=== PATIENT | male | born 1940 | race Caucasian/White ===

== ENCOUNTER → 2016-11-23 | Outpatient (CLI) | payer MEDICARE ==
[~2016-11-23] MED LIST: AMLO2.5T PO; ATOR10 PO; ENBR50IN3 SC; FOLI1 PO; LISI10TA PO; METH2.5 PO; PLAV75TA PO; ST J81CH PO; TAB-TAB PO; TIMO0.5S4 EACH EYE
[2016-11-23 15:49] LABS: HEMATOCRIT 39.3 % (39.0-51.0); MEAN CELL VOLUME 93.1 FL (80.0-100.0); MEAN CORPUSCULAR HEMOGLOBIN 31.3 PG (27.0-34.0); MEAN CORPUSCULAR HGB CONC 33.7 % (32.0-36.0); PLATELET COUNT 192 TH/MM3 (150-450); RED BLOOD COUNT 4.23 MIL/MM3 (4.50-5.90); RED CELL DISTRIBUTION WIDTH 14.4 % (11.6-17.2); REVIEW FLAG FINAL; WHITE BLOOD COUNT 5.6 TH/MM3 (4.0-11.0)
[2016-11-23 16:03] LABS: ANION GAP 5 MEQ/L (5-15); AST (GOT) 13 U/L (15-37); BICARBONATE 31.9 MEQ/L (21.0-32.0); BLOOD UREA NITROGEN 19 MG/DL (7-18); CHLORIDE 103 MEQ/L (98-107); GLOMERULAR FILTRATION RATE 92 ML/MIN (>89); POTASSIUM 4.2 MEQ/L (3.5-5.1); SODIUM (NA) 140 MEQ/L (136-145)
[2016-11-23 16:07] LABS: ALKALINE PHOSPHATASE 69 U/L (45-117); ALT (GPT) 21 U/L (12-78); TOTAL BILIRUBIN ADULT 0.6 MG/DL (0.2-1.0)
[2016-11-23 16:55] LABS: WESTERGREN SEDIMENTATION RATE 17 mm/hr (0-20)
== END ==
LOC: PLAB 11:31
DX: M06.4 Inflammatory polyarthropathy (principal)
CPT/HCPCS: 36415; 80053; 85027; 85652; 86140

== ENCOUNTER → 2017-02-18 | Outpatient (CLI) | payer MEDICARE ==
[2017-02-18 15:36] LABS: HEMATOCRIT 38.2 % (39.0-51.0); MEAN CELL VOLUME 92.1 FL (80.0-100.0); MEAN CORPUSCULAR HEMOGLOBIN 30.9 PG (27.0-34.0); MEAN CORPUSCULAR HGB CONC 33.5 % (32.0-36.0); PLATELET COUNT 213 TH/MM3 (150-450); RED BLOOD COUNT 4.14 MIL/MM3 (4.50-5.90); RED CELL DISTRIBUTION WIDTH 14.2 % (11.6-17.2); REVIEW FLAG FINAL; WHITE BLOOD COUNT 6.3 TH/MM3 (4.0-11.0)
[2017-02-18 16:00] LABS: ALT (GPT) 32 U/L (12-78); ANION GAP 4 MEQ/L (5-15); AST (GOT) 27 U/L (15-37); BICARBONATE 34.2 MEQ/L (21.0-32.0); BLOOD UREA NITROGEN 17 MG/DL (7-18); CHLORIDE 103 MEQ/L (98-107); GLOMERULAR FILTRATION RATE 98 ML/MIN (>89); GLUCOSE,FASTING 88 MG/DL (74-99); POTASSIUM 5.6 MEQ/L (3.5-5.1); SODIUM (NA) 141 MEQ/L (136-145)
[2017-02-18 16:02] LABS: ALKALINE PHOSPHATASE 83 U/L (45-117); TOTAL BILIRUBIN ADULT 0.4 MG/DL (0.2-1.0)
[2017-02-18 16:10] LABS: WESTERGREN SEDIMENTATION RATE 28 mm/hr (0-20)
== END ==
LOC: PLAB 11:16
DX: M06.4 Inflammatory polyarthropathy (principal)
CPT/HCPCS: 36415; 80053; 85027; 85652; 86140

== ENCOUNTER → 2017-04-26 | Outpatient (CLI) | payer MEDICARE ==
[2017-04-26 12:44] LABS: ANION GAP 6 MEQ/L (5-15); AST (GOT) 22 U/L (15-37); BICARBONATE 31.1 MEQ/L (21.0-32.0); BLOOD UREA NITROGEN 19 MG/DL (7-18); CHLORIDE 103 MEQ/L (98-107); GLOMERULAR FILTRATION RATE 85 ML/MIN (>89); GLUCOSE,FASTING 114 MG/DL (74-99); POTASSIUM 4.8 MEQ/L (3.5-5.1); SODIUM (NA) 140 MEQ/L (136-145)
[2017-04-26 12:45] LABS: ALT (GPT) 21 U/L (12-78)
[2017-04-26 12:53] LABS: ALKALINE PHOSPHATASE 96 U/L (45-117); FREE T4 0.96 NG/DL (0.76-1.46); HDL CHOLESTEROL 48.3 MG/DL (40.0-60.0); LDL CHOLESTEROL 56 MG/DL (0-99); TOTAL BILIRUBIN ADULT 0.5 MG/DL (0.2-1.0)
[2017-04-26 17:01] LABS: HEMOGLOBIN A1b 1.6 %; HEMOGLOBIN LA1C 2.1 %; HEMOGLOBIN P3 3.9 %
== END ==
LOC: PLAB 09:43
PROVIDERS: ATTEND Family Medicine
DX: E78.5 Hyperlipidemia, unspecified (principal); R94.6 Abnormal results of thyroid function studies; R53.83 Other fatigue; R73.01 Impaired fasting glucose; Z12.5 Encounter for screening for malignant neoplasm of prostate
CPT/HCPCS: 36415; 80053; 80061; 83036; 84439; 84443; G0103

== ENCOUNTER 2017-05-23 09:21 | Inpatient (IN) | payer MEDICARE ==
[2017-05-23] VITALS (7 sets, daily range): BP systolic 127–147; BP diastolic 58–67; PULSE 61–81; RESP 16–20; TEMP 96.6–97.5; O2SAT 93–98
[~2017-05-23] VITALS: Ht 177.8 cm; Wt 88.0 kg
[2017-05-23] MEDS ORDERED: FOLI400T PO (09:37)
[2017-05-23] MEDS ORDERED: METH2.5T PO (09:37)
[2017-05-23] MEDS ORDERED: LUTE1TAB PO (09:37)
[2017-05-23] MEDS ORDERED: PLAV75TA29 PO (09:37)
[2017-05-23] MEDS ORDERED: LIPI10TA PO (09:37)
[2017-05-23] MEDS ORDERED: ENBR50IN2 SQ (09:37)
[2017-05-23] MEDS ORDERED: MULTTAB67 PO (09:37)
[2017-05-23] MEDS ORDERED: LISI20TA3 PO (09:37)
[2017-05-23] MEDS ORDERED: ASPI81CH CHEW (09:37)
[2017-05-23] MEDS ORDERED: AMLO5TAB2 PO (09:37)
[2017-05-23] MEDS ORDERED: TIMO0.5S30 LEFT EYE (09:37)
[2017-05-23] MEDS ORDERED: SODIUM CHLORIDE 0.9% FLUSH 10 ML FLUSH IV FLUSH PRN ×2 (09:45→11:45)
[2017-05-23] MEDS ORDERED: ONDANSETRON HCL 4 MG/2 ML VIAL IVP ONE (09:45)
[2017-05-23] MEDS ORDERED: MORPHINE SULFATE 4 MG/ML INJ IV PUSH ONE (09:45)
--- NOTE | 2017-05-23 10:13 | PD ---
HPI . Abdominal pain Chief Complaint: GI Complaint Time Seen by Provider: 09:34 Travel History International Travel<30 days: No Contact w/Intl Traveler<30days: No Traveled to known affect area: No History of Present Illness HPI This patient presents along with his with the chief complaint of abdominal pain. He states that he was fine when he went to bed last night but was awakened from sleep at about 4 AM with lower abdominal pain. His gave him some Gas-X. His pain subsequently moved from the lower abdomen to the upper abdomen. She then gave him Zantac. She states that he vomited the Zantac. The Gas-X and Zantac gave him no relief. He rates his pain as 7-8/10. He states that it is a constant pain. He is unable to further characterize the pain. He states that his last normal bowel movement was 2 days ago. He does not recall when he last passed gas. He reports no fever. He reports no urinary symptoms. He denies any previous similar history. He had pizza for supper last night. He states that he has never had any problems eating pizza before. PFSH Past Medical History Arthritis: Yes Blood Disorders: No Cancer: No Cardiovascular Problems: Yes Chemotherapy: No Cerebrovascular Accident: No Coronary Artery Disease: Yes Diabetes: No Diminished Hearing: No Endocrine: No Gastrointestinal Disorders: Yes (hernia) Glaucoma: No Genitourinary: No Headaches: No Hepatitis: No Hiatal Hernia: No Hypertension: Yes Immune Disorder: No Implanted Vascular Access Dvce: Yes Musculoskeletal: Yes Neurologic: Yes (cerv. fx) Psychiatric: No Reproductive: No Respiratory: No Migraines: No Myocardial Infarction: No Radiation Therapy: No Seizures: No Thyroid Disease: No Ulcer: No Past Surgical History Abdominal Surgery: Yes (BILAT INGUINAL HERNIA, ) AICD: No Appendectomy: No Cardiac Surgery: No Cholecystectomy: No Ear Surgery: No Endocrine Surgery: No Eye Surgery: No Genitourinary Surgery: No Gynecologic Surgery: No Joint Replacement: Yes Neurologic Surgery: Yes (cerv . fusion) Oral Surgery: No Pacemaker: No Thoracic Surgery: No Other Surgery: Yes (CAROTID ENDARTERECTOMY. Bilateral inguinal hernia repair.) Social History Alcohol Use: Yes (occ) Tobacco Use: No Substance Use: No Allergies-Medications (Allergen,Severity, Reaction): Coded Allergies: No Known Allergies (Verified , 05/23/17) Reported Meds & Prescriptions Reported Meds & Active Scripts Active Reported Lutein 10 Mg Tab 10 Mg PO DAILY Multiple Vitamin 1 Tab 1 Tab PO DAILY Aspirin 81 Mg Chew 81 Mg CHEW DAILY Timolol Opth Drops 0.5 % Soln 1 Drop LEFT EYE BID Folic Acid 400 Mcg Tab Unknown Dose PO DAILY Methotrexate 2.5 Mg Tab 10 Mg PO Q7D Lisinopril-Hctz 20-25 Mg Tab 1 Tab PO DAILY Amlodipine (Amlodipine Besylate) 5 Mg Tab 5 Mg PO DAILY Enbrel PF Inj (Etanercept) 50 mg/ml Syr 25 Mg SQ 2XWEEK Plavix (Clopidogrel Bisulfate) 75 Mg Tab 75 Mg PO DAILY Lipitor (Atorvastatin Calcium) 10 Mg Tab 10 Mg PO HS Review of Systems Except as stated in HPI: all other systems reviewed are Neg General / Constitutional: No: Fever, Chills Cardiovascular: No: Chest Pain or Discomfort Respiratory: No: Shortness of Breath Gastrointestinal: Positive: Nausea, Vomiting, Abdominal Pain, Constipation, No : Diarrhea Genitourinary: No: Urgency, Frequency, Dysuria Physical Exam Narrative GENERAL: This is an elderly man who is awake and alert and in no acute distress. SKIN: Warm and dry. HEAD: Atraumatic. Normocephalic. EYES: Pupils equal and round. Extraocular movements are intact. ENT: No nasal bleeding or discharge. Mucous membranes pink and moist. NECK: Trachea midline. Neck is supple. CARDIOVASCULAR: Regular rate and rhythm. Heart sounds are normal. RESPIRATORY: No accessory muscle use. Lungs are clear with good air movement throughout. GASTROINTESTINAL: Abdomen soft. He has a small, vertical surgical scar at the umbilicus. Bowel sounds are present. I am unable to elicit any tenderness. MUSCULOSKELETAL: No obvious deformities. No edema. NEUROLOGICAL: Awake and alert. No obvious cranial nerve deficits. Motor grossly within normal limits. Normal speech. PSYCHIATRIC: Appropriate mood and affect; insight and judgment normal. Data Data Last Documented VS Vital Signs Date Time Temp Pulse Resp B/P (MAP) Pulse Ox O2 Delivery O2 Flow Rate FiO2 05/23/17 10:19 61 20 127/61 (83) 94 05/23/17 09:25 97.5 Orders Orders Complete Blood Count With Diff (05/23/17 09:43) Comprehensive Metabolic Panel (05/23/17 09:43) Lipase (05/23/17 09:43) Urinalysis - C+S If Indicated (05/23/17 09:43) Ct Abd/Pel W Iv Contrast(Rout) (05/23/17 09:43) Iv Access Insert/Monitor (05/23/17 09:43) Ecg Monitoring (05/23/17 09:43) Oximetry (05/23/17 09:43) NPO (05/23/17 09:43) Morphine Inj (Morphine Inj) (05/23/17 09:45) Ondansetron Inj (Zofran Inj) (05/23/17 09:45) Sodium Chloride 0.9% Flush (Ns Flush) (05/23/17 09:45) Electrocardiogram (05/23/17 09:43) Sodium Chlor 0.9% 1000 Ml Inj (Ns 1000 M (05/23/17 11:00) Iohexol 350 Inj (Omnipaque 350 Inj) (05/23/17 10:52) Lactic Acid Sepsis Protocol (05/23/17 11:08) Piperacil-Tazo 3.375 Gm Premix (Zosyn 3. (05/23/17 11:15) Insert Ng Tube (05/23/17 11:25) Labs Laboratory Tests Test 05/23/17 09:50 05/23/17 11:24 White Blood Count 10.2 TH/MM3 Red Blood Count 4.22 MIL/MM3 Hemoglobin 13.3 GM/DL Hematocrit 39.0 % Mean Corpuscular Volume 92.5 FL Mean Corpuscular Hemoglobin 31.4 PG Mean Corpuscular Hemoglobin Concent 34.0 % Red Cell Distribution Width 13.6 % Platelet Count 190 TH/MM3 Mean Platelet Volume 7.5 FL Neutrophils (%) (Auto) 88.6 % Lymphocytes (%) (Auto) 6.9 % Monocytes (%) (Auto) 3.2 % Eosinophils (%) (Auto) 1.0 % Basophils (%) (Auto) 0.3 % Neutrophils # (Auto) 9.1 TH/MM3 Lymphocytes # (Auto) 0.7 TH/MM3 Monocytes # (Auto) 0.3 TH/MM3 Eosinophils # (Auto) 0.1 TH/MM3 Basophils # (Auto) 0.0 TH/MM3 CBC Comment DIFF FINAL Differential Comment Blood Urea Nitrogen 19 MG/DL Creatinine 0.68 MG/DL Random Glucose 165 MG/DL Total Protein 7.7 GM/DL Albumin 3.5 GM/DL Calcium Level 8.7 MG/DL Alkaline Phosphatase 82 U/L Aspartate Amino Transf (AST/SGOT) 21 U/L Alanine Aminotransferase (ALT/SGPT) 22 U/L Total Bilirubin 0.7 MG/DL Sodium Level 137 MEQ/L Potassium Level 4.1 MEQ/L Chloride Level 99 MEQ/L Carbon Dioxide Level 28.0 MEQ/L Anion Gap 10 MEQ/L Estimat Glomerular Filtration Rate 113 ML/MIN Lipase 96 U/L MDM Medical Decision Making Medical Screen Exam Complete: Yes Emergency Medical Condition: Yes Medical Record Reviewed: Yes (medical history significant for hypertension, hyperlipidemia and rheumatoid arthritis) Interpretation(s) EKG shows a normal sinus rhythm. His most recent EKG was in 2009. Since that time, he has developed downsloping of the ST segment in III. Otherwise, there have been no changes. Differential Diagnosis Differential diagnosis of abdominal pain includes but is not limited to gastritis, pancreatitis, hepatitis, gastroenteritis, gallbladder disease, constipation, urinary retention, UTI, peptic ulcer disease, diverticulitis or appendicitis Narrative Course This patient presents complaining with abdominal pain which started at 4:00 this morning. It started in the lower abdomen and has now moved to the upper abdomen. He reports no bowel movement for 2 days. He is also passing no gas. He has had previous abdominal surgery. Bowel obstruction needs to be ruled out. CT is pending. EKG was done to rule out ACS. Labs are pending. In the meantime, he will be treated with IV morphine and Zofran. CBC & BMP Diagram 05/23/17 09:50 Total Protein 7.7, Albumin 3.5, Calcium Level 8.7, Alkaline Phosphatase 82, Aspartate Amino Transf (AST/SGOT) 21, Alanine Aminotransferase (ALT/SGPT) 22, Total Bilirubin 0.7 CT>>Significantly abnormal appearance of the small bowel within the left lower quadrant with abnormal dilation and adjacent free fluid concerning for a focal area of small bowel volvulus and strangulation I have subsequently ordered a lactic acid level. I have also ordered Zosyn. Surgery will be consulted. Physician Communication Physician Communication Dr. Tamayo, general surgery, requests transfer to [facility] [place] possible major bowel surgery. He will be admitted to the hospitalists' service. An NGT will be placed. Dr. Reddy will admit. Diagnosis Primary Impression: Abdominal pain Qualified Codes: R10.84 - Generalized abdominal pain Additional Impression: SBO (small bowel obstruction) Admitting Information Admitting Physician Requests: Admit Condition: Stable Carline Walton MD May 23, 2017 10:13
[2017-05-23 10:24] LABS: AUTOMATED NEUTROPHIL # 9.1 TH/MM3 (1.8-7.7); BASOPHIL % 0.3 % (0.0-2.0); EOSINOPHIL # 0.1 TH/MM3 (0-0.4); LYMPH % 6.9 % (9.0-44.0); LYMPHOCYTE # 0.7 TH/MM3 (1.0-4.8); MEAN CELL VOLUME 92.5 FL (80.0-100.0); MEAN CORPUSCULAR HEMOGLOBIN 31.4 PG (27.0-34.0); MONO % 3.2 % (0.0-8.0); NEUT % 88.6 % (16.0-70.0); PLATELET COUNT 190 TH/MM3 (150-450); RED BLOOD COUNT 4.22 MIL/MM3 (4.50-5.90); RED CELL DISTRIBUTION WIDTH 13.6 % (11.6-17.2); WHITE BLOOD COUNT 10.2 TH/MM3 (4.0-11.0)
[2017-05-23 10:30] LABS: HEMO FLAGS DIFF FINAL
[2017-05-23 10:34] LABS: CHLORIDE 99 MEQ/L (98-107); POTASSIUM 4.1 MEQ/L (3.5-5.1); SODIUM (NA) 137 MEQ/L (136-145)
[2017-05-23 10:38] LABS: ANION GAP 10 MEQ/L (5-15); BLOOD UREA NITROGEN 19 MG/DL (7-18)
[2017-05-23 10:40] LABS: ALT (GPT) 22 U/L (12-78); AST (GOT) 21 U/L (15-37)
[2017-05-23 10:41] LABS: GLOMERULAR FILTRATION RATE 113 ML/MIN (>89)
[2017-05-23 10:42] LABS: TOTAL BILIRUBIN ADULT 0.7 MG/DL (0.2-1.0)
[2017-05-23 10:43] LABS: ALKALINE PHOSPHATASE 82 U/L (45-117)
[2017-05-23] MEDS ORDERED: IOHEXOL 350 MG/ML 10 ML VIAL (for RAD DIAG) IVCONTRAST ONE (10:52)
[2017-05-23] MEDS: SODIUM CHLOR 0.9% 1000 ML INJ 1,000 ML IV SCH ×15 (11:02→22:22)
--- NOTE | 2017-05-23 11:10 | RADRPT ---
EXAM DATE/TIME: 05/23/2017 10:48 [facility] COMPARISON: No previous studies available for comparison. INDICATIONS : Right lower quadrant pain. IV CONTRAST: 95 cc Omnipaque 350 (iohexol) IV ORAL CONTRAST: No oral contrast ingested. RADIATION DOSE: 21.22 CTDIvol (mGy) MEDICAL HISTORY : Hypertension. Hernia, inguinal. SURGICAL HISTORY : Inguinal hernia repair. Bilateral hip repair. ENCOUNTER: Initial ACUITY: 1 day PAIN SCALE: 5/10 LOCATION: Right lower quadrant TECHNIQUE: Volumetric scanning of the abdomen and pelvis was performed. Using automated exposure control and adjustment of the mA and/or kV according to patient size, radiation dose was kept as low as reasonably achievable to obtain optimal diagnostic quality images. DICOM format image data is av ailable electronically for review and comparison. FINDINGS: LOWER LUNGS: The visualized lower lungs are clear. LIVER: Homogeneous density without lesion. There is no dilation of the biliary tree. No calcifi ed gallstones. SPLEEN: Normal size without lesion. PANCREAS: Within normal limits. KIDNEYS: Normal in size and shape. There is no mass, stone or hydronephrosis. ADRENAL GLANDS: Within normal limits. VASCULAR: There is no aortic aneurysm. BOWEL/MESENTERY: Significantly abnormal appearance of small bowel loops within the left lower clovis drant which demonstrate abnormal dilation and adjacent free fluid within the mesentery. There is swir ling of the central vessels concerning for a closed loop volvulus. The remainder of the small bowel d emonstrates normal caliber. The large bowel is unremarkable. These findings were relayed to the refer ring physician at 1107 bone May 23, 2017. ABDOMINAL WALL: Within normal limits. RETROPERITONEUM: There is no lymphadenopathy. BLADDER: Limited evaluation secondary to beam hardening artifact REPRODUCTIVE: Limited evaluation secondary to beam hardening artifact. INGUINAL: There is no lymphadenopathy or hernia. MUSCULOSKELETAL: Bilateral hip processes which contribute to significant beam hardening artifact through the lower pelvis. The osseous structures otherwise are history degenerative change without ly tic or blastic lesion. CONCLUSION: Significantly abnormal appearance of the small bowel within the left lower quadrant w ith abnormal dilation and adjacent free fluid concerning for a focal area of small bowel volvulus and strangulation. These findings were discussed with the referring physician at 1107 on May 23, 2017 . Hali Danielson MD on May 23, 2017 at 11:00 Board Certified Radiologist. This report was verified electronically.
[2017-05-23] MEDS ORDERED: PIPERACIL-TAZO 3.375 GM PREMIX 50 ML IV ONE (11:15)
--- NOTE | 2017-05-23 11:44 | EKG ---
Date Performed: 05/23/2017 Time Performed: 09:54:12 PTAGE: 77 years EKG: Sinus rhythm POSSIBLE LEFT ATRIAL ENLARGEMENT BORDERLINE RIGHT AXIS DEVIATION BORDERLINE ECG PREVIOUS TRACING : 05/07/2010 12.47 Compared to prior tracing no significant change DOCTOR: Kathrine Gallegos Interpretating Date/Time 05/23/2017 11:42:47
[2017-05-23] MEDS ORDERED: NALOXONE HCL 0.4 MG/ML AMP IV PRN (11:45)
[2017-05-23] MEDS ORDERED: SENNOSIDES 8.6 MG TAB PO PRN (11:45)
[2017-05-23] MEDS ORDERED: ENALAPRILAT 1.25 MG/ML VIAL IV PUSH PRN (11:45)
[2017-05-23] MEDS ORDERED: BISACODYL 10 MG SUPP RECTAL PRN (11:45)
[2017-05-23] MEDS ORDERED: MAGNESIUM HYDROXIDE SUSP 30 ML CUP PO PRN (11:45)
[2017-05-23] MEDS ORDERED: ONDANSETRON HCL 4 MG/2 ML VIAL IVP PRN (11:45)
[2017-05-23] MEDS ORDERED: LACTULOSE SYRUP 20 GM/30 ML CUP PO PRN (11:45)
[2017-05-23] MEDS ORDERED: PROPOFOL 200 MG/20 ML AMP IV ONE (12:00)
--- NOTE | 2017-05-23 12:46 | RADRPT ---
EXAM DATE/TIME: 05/23/2017 12:28 [facility] COMPARISON: No previous studies available for comparison. INDICATIONS : Abdomen pain, NG tube placement MEDICAL HISTORY : None. SURGICAL HISTORY : Inguinal hernia repair. ENCOUNTER: Initial ACUITY: 1 day PAIN SCORE: 9/10 LOCATION: Bilateral abdomen FINDINGS: Supine view of the abdomen was performed. There is an NG tube in the distal esophagus. The tip of the NG tube is at the GE junction. Recommend advancing the NG tube another 10 cm. The lung bases are kirit ssly clear. There is some mild to moderate gaseous distention of the small bowel. CONCLUSION: The tip of the NG tube is at the GE junction. Recommend advancing NG tube approximately 10 cm. Dereck Paniagua MD on May 23, 2017 at 12:43 Board Certified Radiologist. This report was verified electronically.
--- NOTE | 2017-05-23 16:43 | HHI.HP ---
HPI [facility] Primary Care Physician Hollie Gomez MD Admission Diagnosis SBO Diagnoses: Travel History International Travel<30 Days: No Contact w/Intl Traveler <30 Da: No Traveled to Known Affected Are: No History of Present Illness 77-year-old male with a history of coronary artery disease, carotid stenosis status post endarterectomy, cervical spinal fusion, presents with acute onset nonradiating, crampy lower abdominal pain that began around 4:30 AM, waking him from sleep. He tried Zantac and Gas-X, however vomited this. No blood in vomit. Upon admission to the ER, nausea and abdominal pain improved with antiemetics and narcotics. Patient reports previously feeling all right. Denies any fevers, chills, chest pain, shortness of breath. Review of Systems Except as stated in HPI: all other systems reviewed are Neg Past Family Social History Past Medical History Hyperlipidemia Coronary artery disease History of cervical fracture. Difficult intubation with past surgeries. Glaucoma Hypertension Arthritis. Past Surgical History Right-sided carotid endarterectomy Bilateral hip surgery Right-sided inguinal hernia repair Allergies: Coded Allergies: No Known Allergies (Verified , 05/23/17) Family History Mother at age 96. Father secondary to IA at age 53 Social History Nonsmoker. Occasional drinker. Denies any illicit drugs. Lives with . Physical Exam Vital Signs Vital Signs Date Time Temp Pulse Resp B/P (MAP) Pulse Ox O2 Delivery O2 Flow Rate FiO2 05/23/17 14:23 74 18 147/64 (91) 95 Room Air 05/23/17 12:48 81 18 143/58 (86) 95 Room Air 05/23/17 10:19 61 20 127/61 (83) 94 05/23/17 10:05 96 05/23/17 09:25 97.5 66 16 147/67 (93) 98 Physical Exam GENERAL: This is a well-nourished, well-developed patient, in no apparent distress. SKIN: No rashes, ecchymoses or lesions. Cool and dry. HEAD: Atraumatic. Normocephalic. No temporal or scalp tenderness. EYES: Pupils equal round and reactive. Extraocular motions intact. No scleral icterus. No injection or drainage. ENT: Nose without bleeding, purulent drainage or septal hematoma. Throat without erythema, tonsillar hypertrophy or exudate. Uvula midline. Airway patent. NECK: Trachea midline. No JVD or lymphadenopathy. Supple, nontender, no meningeal signs. CARDIOVASCULAR: Regular rate and rhythm without murmurs, gallops, or rubs. RESPIRATORY: Clear to auscultation. Breath sounds equal bilaterally. No wheezes , rales, or rhonchi. GASTROINTESTINAL: Abdomen soft, non-tender, nondistended. No hepato-splenomegaly , or palpable masses. No guarding. MUSCULOSKELETAL: Extremities without clubbing, cyanosis, or edema. No joint tenderness, effusion, or edema noted. No calf tenderness. Negative Homans sign bilaterally. NEUROLOGICAL: Awake and alert. Cranial nerves II through XII intact. Motor and sensory grossly within normal limits. Five out of 5 muscle strength in all muscle groups. Normal speech. Laboratory Laboratory Tests Test 05/23/17 09:50 05/23/17 11:24 White Blood Count 10.2 Red Blood Count 4.22 Hemoglobin 13.3 Hematocrit 39.0 Mean Corpuscular Volume 92.5 Mean Corpuscular Hemoglobin 31.4 Mean Corpuscular Hemoglobin Concent 34.0 Red Cell Distribution Width 13.6 Platelet Count 190 Mean Platelet Volume 7.5 Neutrophils (%) (Auto) 88.6 Lymphocytes (%) (Auto) 6.9 Monocytes (%) (Auto) 3.2 Eosinophils (%) (Auto) 1.0 Basophils (%) (Auto) 0.3 Neutrophils # (Auto) 9.1 Lymphocytes # (Auto) 0.7 Monocytes # (Auto) 0.3 Eosinophils # (Auto) 0.1 Basophils # (Auto) 0.0 CBC Comment DIFF FINAL Differential Comment Blood Urea Nitrogen 19 Creatinine 0.68 Random Glucose 165 Total Protein 7.7 Albumin 3.5 Calcium Level 8.7 Alkaline Phosphatase 82 Aspartate Amino Transf (AST/SGOT) 21 Alanine Aminotransferase (ALT/SGPT) 22 Total Bilirubin 0.7 Sodium Level 137 Potassium Level 4.1 Chloride Level 99 Carbon Dioxide Level 28.0 Anion Gap 10 Estimat Glomerular Filtration Rate 113 Lipase 96 Lactic Acid Level 1.2 Result Diagram: 05/23/17 0950 05/23/17 0950 Caprini VTE Risk Assessment Caprini VTE Risk Assessment: No/Low Risk (score <= 1) Caprini Risk Assessment Model Point Value = 1 Point Value = 2 Point Value = 3 Point Value = 5 Age 41-60 Minor surgery BMI > 25 kg/m2 Swollen legs Varicose veins or History of unexplained or recurrent spontaneous Oral contraceptives or hormone replacement Sepsis (< 1 month) Serious lung disease, including pneumonia (< 1 month) Abnormal pulmonary function Acute myocardial infarction Congestive heart failure (< 1 month) History of inflammatory bowel disease Medical patient at bed rest Age 61-74 Arthroscopic surgery Major open surgery (> 45 min) Laparoscopic surgery (> 45 min) Malignancy Confined to bed (> 72 hours) Immobilizing plaster cast Central venous access Age >= 75 History of VTE Family history of VTE Factor V Leiden Prothrombin [id number] Lupus anticoagulant Anticardiolipin antibodies Elevated serum homocysteine Heparin-induced thrombocytopenia Other congenital or acquired thrombophilia Stroke (< 1 month) Elective arthroplasty Hip, pelvis, or leg fracture Acute spinal cord injury (< 1 month) Prophylaxis Regimen Total Risk Factor Score Risk Level Prophylaxis Regimen 0-1 Low Early ambulation 2 Moderate Order ONE of the following: *Sequential Compression Device (SCD) *Heparin 5000 units SQ BID 3-4 Higher Order ONE of the following medications: *Heparin 5000 units SQ TID *Enoxaparin/Lovenox 40 mg SQ daily (WT < 150 kg, CrCl > 30 mL/min) *Enoxaparin/Lovenox 30 mg SQ daily (WT < 150 kg, CrCl > 10-29 mL/min) *Enoxaparin/Lovenox 30 mg SQ BID (WT < 150 kg, CrCl > 30 mL/min) AND/OR *Sequential Compression Device (SCD) 5 or more Highest Order ONE of the following medications: *Heparin 5000 units SQ TID (Preferred with Epidurals) *Enoxaparin/Lovenox 40 mg SQ daily (WT < 150 kg, CrCl > 30 mL/min) *Enoxaparin/Lovenox 30 mg SQ daily (WT < 150 kg, CrCl > 10-29 mL/min) *Enoxaparin/Lovenox 30 mg SQ BID (WT < 150 kg, CrCl > 30 mL/min) AND *Sequential Compression Device (SCD) Assessment and Plan Assessment and Plan //Small bowel volvulus/coagulation as seen on CT. -Nothing by mouth. IV fluids. NG tube to low intermittent suction. -Transferred to [facility]. Gen. surgery contacted by ER appreciate assistance. //Hypertension. //Coronary artery disease Chronic. Systolic blood pressure in the 140s on admission. -Hold by mouth amlodipine for now When necessary blood pressure medications ordered. -Hold by mouth Plavix and aspirin for now. Anticoagulation as per surgical service. -Recommend restarting and coagulation as soon as possible. Continue to monitor. //Hyperlipidemia. Chronic. Hold By mouth statin for now. //Glaucoma. Chronic. Continue eyedrops. //Arthritis. Chronic. Hold methotrexate and Enbrel //Prophylaxis. SCDs. antiCoagulation as per surgical service. Discussed Condition With Patient, nurse, ED physician. Physician Certification 2 Midnight Certification Type: Admission for Inpatient Services Order for Inpatient Services The services are ordered in accordance with Medicare regulations or non- Medicare payer requirements, as applicable. In the case of services not specified as inpatient-only, they are appropriately provided as inpatient services in accordance with the 2-midnight benchmark. Estimated LOS (days): 4 days is the estimated time the patient will need to remain in the hospital, assuming treatment plan goals are met and no additional complications. Post-Hospital Plan: Not yet determined Luis Fernando Reddy MD May 23, 2017 16:43
[2017-05-23 17:24] LABS: BLOOD, URINE NEG (NEG); COMMENT (UR) CULT NOT INDICATED; CULTURE IF INDICATED CULT NOT INDICATED; GLUCOSE,URINE NEG (NEG); KETONE, URINE 10 mg/dL (NEG); NITRITE,URINE NEG (NEG); PH, URINE 5.5 (5.0-8.5); URINE COLOR YELLOW (YELLW/STRAW)
[2017-05-23] MEDS ORDERED: BUPIVACAINE/EPINEPHRINE 0.25% 50 ML VIAL ONE (17:41)
[2017-05-23] MEDS ORDERED: SUGAMMADEX SODIUM 200 MG/2 ML VIAL IV PUSH ONE ×2 (18:16)
--- NOTE | 2017-05-23 18:45 | MB ---
cc: ALEXIA SPICER DATE OF CONSULTATION: 05/23/2017. REASON FOR CONSULTATION: Small bowel obstruction. PHYSICIAN REQUESTING CONSULTATION: Dr. Luis Fernando Reddy. HISTORY OF PRESENT ILLNESS: The patient is a 77-year-old male with multiple comorbidities including carotid stent on Plavix who developed sudden onset of pain at 4:30 a.m. The patient took Zantac, Gas-X however he continued to get worse. He started vomiting which was clear and nonbilious. The patient presented to the [facility] and underwent a CT scan which showed small bowel obstruction that was concerning for multiple loops of small bowel with inflammatory changes and possible vascular compromise. The patient was found to be hemodynamically stable and after discussion with the hospitalist and surgery, the patient was transferred to [facility] for potential surgery. The patient continues to have significant pain which is unlike pain he has had previously. He has only had a previous hernia repair on his abdomen. He had some nonbilious vomiting which is now stopped with a nasogastric tube. The patient has been obstipated since 4:00 a.m. this morning. He still complains of abdominal distention and no fevers, chills, night sweats or hematemesis or hematochezia or any other complaints. The patient denies any chest pain, shortness of breath or any neurologic changes. REVIEW OF SYSTEMS: A twelve-point review of systems was gone over with the patient and is negative except for the pertinent positives mentioned above in the history of present illness. PAST MEDICAL HISTORY: 1. Hyperlipidemia. 2. Coronary artery disease. 3. Carotid stent. 4. History of cervical fusion. 5. Multiple orthopedic procedures. 6. Glaucoma. 7. Hypertension. 8. Arthritis. PAST SURGICAL HISTORY: 1. Multiple orthopedic surgeries. 2. Bilateral hernia surgery. ALLERGIES: NO KNOWN DRUG ALLERGIES. FAMILY HISTORY: Noncontributory. SOCIAL HISTORY: The patient denies alcohol, tobacco or illicit drug use. He lives with his . PHYSICAL EXAMINATION: VITAL SIGNS: Pulse 74, respiratory rate 18, blood pressure 147/64, 02 saturation 95%. GENERAL: The patient is a male in no acute distress. HEAD, EYES, EARS, NOSE, THROAT: Head is normocephalic and atraumatic. Pupils equal, round and reactive to light. The sclerae are nonicteric. The mucous membranes are moist. NECK: The neck is supple. No jugular venous distention. He does have a fusion with decreased mobility. LUNGS: Breath sounds are present bilaterally. Nonlabored breathing pattern. HEART: Regular rate and rhythm. ABDOMEN: Abdomen soft and distended. Tympanic. Some focal tenderness in the left lower quadrant without peritonitis or rebound tenderness. Some surgical scars well-healed without hernia. EXTREMITIES: No cyanosis, clubbing or edema. BACK: No costovertebral angle tenderness. NEUROLOGIC: The patient is oriented x3. Nonfocal peripheral exam. Cranial nerves II through XII are grossly intact. LABORATORY VALUES: Unremarkable. White blood cell count 10.2. IMAGING STUDIES: His CT scan does show multiple loops of small bowel with surrounding fluid concerning for volvulus, for strangulation. ASSESSMENT AND PLAN: The patient is a 77-year-old male with small bowel obstruction. The patient clinically has no signs of bowel ischemia or infarction of bowel and is clinically quite stable with non-concerning abdominal exam. However, the patient's CT scan findings are concerning for possible internal hernia. I did discuss these findings with the patient and his daughter and offered surgery as a diagnostic laparoscopy to rule out any worsening of any potential process surgically. I also offered as an alternative to continue on nonoperative management with a nasogastric tube and serial abdominal examinations. The patient and his daughter have decided to proceed to the operating room for diagnostic laparoscopy and possible exploratory laparotomy. The risks, benefits, and alternatives were discussed including increased risk of bleeding due to the patient being on Plavix. He is in agreement with the procedure. We will proceed to the operating room at the next available time today for diagnostic laparoscopy and possible exploratory laparotomy. MD ROSA M Dumont/ARI /6:15 PM /6:31 PM
[2017-05-23] MEDS ORDERED: fentaNYL CITRATE 250 MCG/5 ML AMP ONE (20:05)
[2017-05-23] MEDS ORDERED: DO NOT ADM ANY ANTICOAGULANT DRUGS PRN (20:30)
[2017-05-23] MEDS: TIMOLOL MALEATE 0.5% OPHT SOLN 5 ML BTL LEFT EYE SCH ×2 (21:00→23:39)
[2017-05-23] MEDS: DOCUSATE SODIUM 50 MG/SENNA 8.6 MG TAB PO SCH (21:00)
[2017-05-23] MEDS: PIPERACIL-TAZO 3.375 GM PREMIX 50 ML IV SCH (22:06)
[2017-05-23] MEDS: SODIUM CHLORIDE 0.9% FLUSH 10 ML FLUSH IV FLUSH SCH (22:06)
[2017-05-24] VITALS: BP 124/61; PULSE 68; RESP 17; TEMP 96.1; O2SAT 95
[2017-05-24] MEDS: MORPHINE SULFATE 4 MG/ML INJ IV PUSH PRN ×2 (02:46→08:00)
[2017-05-24] MEDS: PIPERACIL-TAZO 3.375 GM PREMIX 50 ML IV SCH ×4 (02:47→20:40)
[2017-05-24 06:01] LABS: AUTOMATED NEUTROPHIL # 7.9 TH/MM3 (1.8-7.7); BASOPHIL % 0.1 % (0.0-2.0); EOSINOPHIL # 0.1 TH/MM3 (0-0.4); EOSINOPHIL % 0.9 % (0.0-4.0); HEMATOCRIT 39.2 % (39.0-51.0); HEMO FLAGS DIFF FINAL; LYMPHOCYTE # 0.9 TH/MM3 (1.0-4.8); MEAN CELL VOLUME 94.4 FL (80.0-100.0); MEAN CORPUSCULAR HEMOGLOBIN 32.6 PG (27.0-34.0); MEAN CORPUSCULAR HGB CONC 34.6 % (32.0-36.0); MONO % 8.1 % (0.0-8.0); NEUT % 81.9 % (16.0-70.0); PLATELET COUNT 169 TH/MM3 (150-450); RED BLOOD COUNT 4.16 MIL/MM3 (4.50-5.90); WHITE BLOOD COUNT 9.6 TH/MM3 (4.0-11.0)
[2017-05-24 06:35] LABS: ANION GAP 6 MEQ/L (5-15); AST (GOT) 19 U/L (15-37); BICARBONATE 28.9 MEQ/L (21.0-32.0); BLOOD UREA NITROGEN 11 MG/DL (7-18); CHLORIDE 102 MEQ/L (98-107); GLOMERULAR FILTRATION RATE 122 ML/MIN (>89); POTASSIUM 4.2 MEQ/L (3.5-5.1); SODIUM (NA) 137 MEQ/L (136-145)
[2017-05-24 06:36] LABS: ALT (GPT) 16 U/L (12-78)
[2017-05-24 06:39] LABS: ALKALINE PHOSPHATASE 68 U/L (45-117)
[2017-05-24 08:00] VITALS: BP 143/67; PULSE 76; RESP 18; TEMP 97.8; O2SAT 96
[2017-05-24] MEDS: TIMOLOL MALEATE 0.5% OPHT SOLN 5 ML BTL LEFT EYE SCH ×2 (08:00→20:42)
[2017-05-24] MEDS: SODIUM CHLOR 0.9% 1000 ML INJ 1,000 ML IV SCH ×2 (08:00→17:31)
[2017-05-24] MEDS: SODIUM CHLORIDE 0.9% FLUSH 10 ML FLUSH IV FLUSH SCH ×2 (08:07→20:40)
[2017-05-24] MEDS: DOCUSATE SODIUM 50 MG/SENNA 8.6 MG TAB PO SCH ×3 (08:07→20:44)
[2017-05-24 08:27] VITALS: O2SAT 92
[2017-05-24] MEDS ORDERED: SUGAMMADEX SODIUM 200 MG/2 ML VIAL IV PUSH ONE ×2 (09:36)
[2017-05-24] MEDS ORDERED: DEXMEDETOMIDINE HCL 200 MCG/2 ML VIAL ONE (09:36)
[2017-05-24] MEDS ORDERED: KETAMINE HCL 500 MG/5 ML VIAL ONE (09:36)
[2017-05-24] MEDS ORDERED: BUPIVACAINE/EPINEPHRINE 0.25% 50 ML VIAL ONE (09:43)
[2017-05-24] MEDS ORDERED: ePHEDrine/NS 25 MG/5 ML SYR IV ONE (12:00)
[2017-05-24] MEDS ORDERED: PHENYLEPH/NS 1000 MCG/10 ML SYR IV ONE (12:00)
[2017-05-24] MEDS ORDERED: PROPOFOL 200 MG/20 ML AMP IV ONE (12:00)
[2017-05-24] MEDS ORDERED: LACTATED RINGER'S 1000 ML INJ 1,000 ML IV ONE (12:00)
[2017-05-24] MEDS ORDERED: ONDANSETRON HCL 4 MG/2 ML VIAL IV PUSH ONE (12:00)
[2017-05-24] MEDS ORDERED: DO NOT ADM ANY ANTICOAGULANT DRUGS PRN (12:25)
--- NOTE | 2017-05-24 12:36 | HHI.PR ---
cc: Ruel Gandhi MD Immediate Post Op Note Procedure Date: May 24, 2017 Pre Op Diagnosis: Small bowel obstruction Post Op Diagnosis: Same, secondary to internal hernia Surgeon: Ruel Gandhi [employer] Professor(s): Keyon Isidro CFA Procedure: Diagnostic laparoscopy Laparoscopic lysis of adhesions Findings: Single adhesive band of omental tissue causing obstruction small bowel Complications: None Specimen(s) removed: None Estimated blood loss: 50 ml Anesthesia: General Drains: ELVIN IVF (1100 ml) Patient to: PACU Patient Condition: Good Date/Time of Procedure: SEE SURGICAL CARE RECORD Ruel Gandhi MD May 24, 2017 12:36
[2017-05-24] MEDS: DEXTROSE 5%-LACTATED RING INJ 1,000 ML IV SCH ×2 (14:00→21:00)
--- NOTE | 2017-05-24 14:23 | HHI.PR ---
Subjective Remarks Follow-up for small bowel obstruction Patient seen in PACU after surgery. When asked about how he felt he stated that he did not know. Patient had no complaints. He asked about the surgery. Objective Vitals Vital Signs Date Time Temp Pulse Resp B/P (MAP) Pulse Ox O2 Delivery O2 Flow Rate FiO2 05/24/17 12:25 97.7 71 20 134/63 (86) 95 Nasal Cannula 2 05/24/17 08:27 92 Nasal Cannula 3.00 05/24/17 08:00 97.8 76 18 143/67 (92) 96 05/24/17 08:00 2.00 05/24/17 04:00 Nasal Cannula 2.00 05/24/17 03:43 Nasal Cannula 2.00 05/24/17 00:00 Nasal Cannula 3.00 05/24/17 00:00 96.1 68 17 124/61 (82) 95 05/23/17 22:13 93 Nasal Cannula 3.00 05/23/17 20:00 Nasal Cannula 3.00 05/23/17 20:00 96.6 71 19 138/65 (89) 94 05/23/17 19:15 76 14 122/61 (81) 100 Nasal Cannula 2 05/23/17 19:00 75 17 135/62 (86) 100 Nasal Cannula 2 05/23/17 18:45 97.7 74 16 122/57 (78) 100 Nasal Cannula 2 I/O 05/23/17 05/23/17 05/23/17 05/24/17 05/24/17 05/24/17 07:00 15:00 23:00 07:00 15:00 23:00 Intake Total 1050 ml 50 ml 759 ml 1100 ml Output Total 750 ml 300 ml Balance 1050 ml 50 ml 9 ml 800 ml Intake Oral 0 ml 0 ml IV Total 1050 ml 50 ml 759 ml Other 1100 ml Output Urine Total 650 ml 250 ml Gastric Drainage Total 100 ml Estimated Blood Loss 50 ml # Voids 0 Result Diagram: 05/24/1745705/24/17457 Objective Remarks GENERAL: in NAD CARDIOVASCULAR: Regular rate and rhythm without murmurs, gallops, or rubs. RESPIRATORY: Breath sounds equal bilaterally. No accessory muscle use. GASTROINTESTINAL: Abdomen soft, non-tender, nondistended. Surgical scar dry clean and intact. Reyes in place urine is red. Medications and IVs Current Medications Morphine Sulfate (Morphine Inj) 2 mg ONCE ONCE IV PUSH Last administered on 10:03; Start 05/23/17 at 09:45; Stop 05/23/17 at 09:46; Status DC Ondansetron HCl (Zofran Inj) 4 mg ONCE ONCE IVP Last administered on 10:02; Start 05/23/17 at 09:45; Stop 05/23/17 at 09:46; Status DC Sodium Chloride (NS Flush) 2 ml UNSCH PRN IV FLUSH FLUSH AFTER USING IV ACCESS ; Start 05/23/17 at 09:45; Stop 05/23/17 at 12:02; Status DC Sodium Chloride 1,000 ml @ 1,000 mls/hr Q1H IV Last administered on 05/23/17 12:43; Start 05/23/17 at 11:00; Stop 05/23/17 at 22:31; Status DC Iohexol (Omnipaque 350 Inj) 95 ml STK-MED ONCE IVCONTRAST Last administered on 05/23/17 10:52; Start 05/23/17 at 10:52; Stop 05/23/17 at 10:53; Status DC Piperacillin Sod/ Tazobactam Sod 50 ml @ 100 mls/hr ONCE ONCE IV Last administered on 05/23/17 12:43; Start 05/23/17 at 11:15; Stop 05/23/17 at 11:44 ; Status DC Sodium Chloride 1,000 ml @ 100 mls/hr Q10H IV Last administered on 05/24/17 08:00; Start 05/23/17 at 11:31 Sodium Chloride (NS Flush) 2 ml UNSCH PRN IV FLUSH FLUSH AFTER USING IV ACCESS ; Start 05/23/17 at 11:45 Sodium Chloride (NS Flush) 2 ml BID IV FLUSH Last administered on 05/23/17 22: 06; Start 05/23/17 at 21:00 Ondansetron HCl (Zofran Inj) 4 mg Q6H PRN IVP NAUSEA OR VOMITING; Start at 11:45 Naloxone HCl (Narcan Inj) 0.4 mg UNSCH PRN IV SEE LABEL COMMENTS; Start at 11:45 Senna/Docusate Sodium (Sivan-Colace) 1 tab BID PO ; Start 05/23/17 at 21:00 Magnesium Hydroxide (Milk Of Magnesia Liq) 30 ml Q12H PRN PO MILD - MODERATE CONSTIPATION; Start 05/23/17 at 11:45 Sennosides (Senokot) 17.2 mg Q12H PRN PO MODERATE - SEVERE CONSTIPATION; Start 05/23/17 at 11:45 Bisacodyl (Dulcolax Supp) 10 mg DAILY PRN RECTAL SEVERE CONSITIPATION; Start at 11:45 Lactulose (Lactulose Liq) 30 ml DAILY PRN PO SEVERE CONSITIPATION; Start at 11:45 Timolol Maleate (Timoptic 0.5% Opth Soln) 1 drop BID LEFT EYE Last administered on 05/24/17 08:00; Start 05/23/17 at 21:00 Enalaprilat (Vasotec Inj) 1.25 mg Q6H PRN IV PUSH SBP> OR = 180, DBP> OR = 100 ; Start 05/23/17 at 11:45 Bupivacaine HCl/ Epinephrine Bitart (Sensorcaine-Epinephrine 0.25% Inj) 50 ml STK-MED ONCE .ROUTE ; Start 05/23/17 at 17:41; Stop 05/23/17 at 17:42; Status DC Piperacillin Sod/ Tazobactam Sod 50 ml @ 100 mls/hr Q6H IV Last administered on 05/24/17 14:00; Start 05/23/17 at 20:00 Sugammadex Sodium (Bridion Inj) 800 mg STK-MED ONCE IV PUSH ; Start 05/23/17 at 18:16; Stop 05/23/17 at 18:17; Status DC Fentanyl Citrate (fentaNYL INJ) 250 mcg STK-MED ONCE .ROUTE ; Start 05/23/17 at 20:05; Stop 05/23/17 at 20:06; Status DC Miscellaneous Information ALL NURSING DEPARTME... UNSCH PRN .XX SEE LABEL COMMENTS; Start 05/23/17 at 20:30; Stop 05/24/17 at 20:29 Morphine Sulfate (Morphine Inj) 2 mg Q3H PRN IV PUSH Pain 5 - 10 Last administered on 05/24/17 08:00; Start 05/24/17 at 02:45 Ketamine HCl (Ketalar Inj) 500 mg STK-MED ONCE .ROUTE ; Start 05/24/17 at 09:36 ; Stop 05/24/17 at 09:37; Status DC Sugammadex Sodium (Bridion Inj) 400 mg STK-MED ONCE IV PUSH ; Start 05/24/17 at 09:36; Stop 05/24/17 at 09:37; Status DC Dexmedetomidine HCl (Precedex Inj) 200 mcg STK-MED ONCE .ROUTE ; Start 05/24/17 at 09:36; Stop 05/24/17 at 09:37; Status DC Bupivacaine HCl/ Epinephrine Bitart (Sensorcaine-Epinephrine 0.25% Inj) 50 ml STK-MED ONCE .ROUTE Last administered on 05/24/17 11:29; Start 05/24/17 at 09: 43; Stop 05/24/17 at 09:44; Status DC Dextrose/Lactated Ringer's 1,000 ml @ 125 mls/hr Q8H IV Last administered on 14:00; Start 05/24/17 at 13:00 Fentanyl Citrate (fentaNYL INJ) 200 mcg STK-MED ONCE .ROUTE ; Start 05/24/17 at 13:28; Stop 05/24/17 at 13:29; Status DC A/P Assessment and Plan //Small bowel volvulus/coagulation as seen on CT. -Status post diagnostic laparoscopy and laparoscopic lysis of adhesions -Continue management per general surgeon. -Patient currently on Zosyn. //Hypertension. //Coronary artery disease -Aspirin and Plavix held secondary surgery. Pending restarting medication per general surgeon. //Hyperlipidemia/glaucoma/OA. -Once patient is alert will restart his home medication. //Prophylaxis. SCDs. antiCoagulation as per surgical service. Shahnaz Barkley MD May 24, 2017 14:23
[2017-05-24 16:00] VITALS: BP 130/63; PULSE 75; RESP 18; TEMP 97.7; O2SAT 99
[2017-05-24 20:00] VITALS: BP 132/63; PULSE 76; RESP 20; TEMP 97.7; O2SAT 97
[2017-05-25] VITALS (7 sets, daily range): BP systolic 122–143; BP diastolic 58–67; PULSE 66–73; RESP 18–20; TEMP 96.2–98; O2SAT 95–99
[2017-05-25] MEDS: PIPERACIL-TAZO 3.375 GM PREMIX 50 ML IV SCH ×4 (01:13→20:55)
[2017-05-25] MEDS: DEXTROSE 5%-LACTATED RING INJ 1,000 ML IV SCH ×2 (05:00→08:43)
[2017-05-25 07:17] LABS: BICARBONATE 31.5 MEQ/L (21.0-32.0)
[2017-05-25 07:42] LABS: MEAN CELL VOLUME 94.1 FL (80.0-100.0); MEAN CORPUSCULAR HEMOGLOBIN 31.4 PG (27.0-34.0); MEAN CORPUSCULAR HGB CONC 33.4 % (32.0-36.0); PLATELET COUNT 150 TH/MM3 (150-450); RED BLOOD COUNT 3.94 MIL/MM3 (4.50-5.90); RED CELL DISTRIBUTION WIDTH 14.6 % (11.6-17.2); REVIEW FLAG FINAL; WHITE BLOOD COUNT 10.3 TH/MM3 (4.0-11.0)
[2017-05-25] MEDS: TIMOLOL MALEATE 0.5% OPHT SOLN 5 ML BTL LEFT EYE SCH ×2 (08:46→20:56)
[2017-05-25] MEDS: SODIUM CHLORIDE 0.9% FLUSH 10 ML FLUSH IV FLUSH SCH ×2 (08:48→20:56)
[2017-05-25] MEDS: SODIUM CHLOR 0.9% 1000 ML INJ 1,000 ML IV SCH (08:54)
--- NOTE | 2017-05-25 12:07 | HHI.PR ---
Subjective Remarks Follow-up for small bowel obstruction Patient denies any abdominal pain. NG tube in place. Denies any nausea or vomiting. He stated that he passed flatus but no bowel movement the moment. His is at the bedside during the interview. Objective Vitals Vital Signs Date Time Temp Pulse Resp B/P (MAP) Pulse Ox O2 Delivery O2 Flow Rate FiO2 05/25/17 09:50 98 Nasal Cannula 2.00 05/25/17 08:22 98 2.00 05/25/17 08:00 96.8 70 18 131/63 (85) 98 05/25/17 00:00 98.0 66 20 122/58 (79) 97 05/24/17 21:20 Nasal Cannula 2.00 05/24/17 20:00 97.7 76 20 132/63 (86) 97 05/24/17 16:00 97.7 75 18 130/63 (85) 99 05/24/17 14:05 97.7 72 20 150/71 (97) 98 Nasal Cannula 2 05/24/17 14:00 72 20 150/71 (97) 98 Nasal Cannula 2 05/24/17 13:45 75 20 146/69 (94) 98 Nasal Cannula 2 05/24/17 13:30 76 20 147/67 (93) 98 Nasal Cannula 2 05/24/17 13:15 76 20 153/68 (96) 99 Nasal Cannula 2 05/24/17 13:00 77 20 144/61 (88) 98 Nasal Cannula 2 05/24/17 12:45 75 20 150/70 (96) 98 Nasal Cannula 2 05/24/17 12:25 97.7 71 20 134/63 (86) 95 Nasal Cannula 2 I/O 05/24/17 05/24/17 05/24/17 05/25/17 05/25/17 05/25/17 07:00 15:00 23:00 07:00 15:00 23:00 Intake Total 759 ml 1100 ml 663 ml 1014 ml Output Total 750 ml 300 ml 1575 ml 1070 ml Balance 9 ml 800 ml -912 ml -56 ml Intake Oral 0 ml 0 ml IV Total 759 ml 663 ml 1014 ml Other 1100 ml Output Urine Total 650 ml 250 ml 1025 ml 450 ml Gastric Drainage Total 100 ml 500 ml 350 ml Drainage Total 50 ml 270 ml Estimated Blood Loss 50 ml # Voids 2 Result Diagram: 05/25/17 0540 05/25/17 0540 Objective Remarks GENERAL: in NAD sitting in clear CARDIOVASCULAR: Regular rate and rhythm without murmurs, gallops, or rubs. RESPIRATORY: Breath sounds equal bilaterally. No accessory muscle use. GASTROINTESTINAL: Abdomen soft, non-tender, nondistended.BM. Hypoactive Surgical scar dry clean and intact ELVIN drain in place with serosanguineous fluid. Medications and IVs Current Medications Morphine Sulfate (Morphine Inj) 2 mg ONCE ONCE IV PUSH Last administered on 10:03; Start 05/23/17 at 09:45; Stop 05/23/17 at 09:46; Status DC Ondansetron HCl (Zofran Inj) 4 mg ONCE ONCE IVP Last administered on 10:02; Start 05/23/17 at 09:45; Stop 05/23/17 at 09:46; Status DC Sodium Chloride (NS Flush) 2 ml UNSCH PRN IV FLUSH FLUSH AFTER USING IV ACCESS ; Start 05/23/17 at 09:45; Stop 05/23/17 at 12:02; Status DC Sodium Chloride 1,000 ml @ 1,000 mls/hr Q1H IV Last administered on 05/23/17 12:43; Start 05/23/17 at 11:00; Stop 05/23/17 at 22:31; Status DC Iohexol (Omnipaque 350 Inj) 95 ml STK-MED ONCE IVCONTRAST Last administered on 05/23/17 10:52; Start 05/23/17 at 10:52; Stop 05/23/17 at 10:53; Status DC Piperacillin Sod/ Tazobactam Sod 50 ml @ 100 mls/hr ONCE ONCE IV Last administered on 05/23/17 12:43; Start 05/23/17 at 11:15; Stop 05/23/17 at 11:44 ; Status DC Sodium Chloride 1,000 ml @ 100 mls/hr Q10H IV Last administered on 05/24/17 08:00; Start 05/23/17 at 11:31 Sodium Chloride (NS Flush) 2 ml UNSCH PRN IV FLUSH FLUSH AFTER USING IV ACCESS ; Start 05/23/17 at 11:45 Sodium Chloride (NS Flush) 2 ml BID IV FLUSH Last administered on 05/23/17 22: 06; Start 05/23/17 at 21:00 Ondansetron HCl (Zofran Inj) 4 mg Q6H PRN IVP NAUSEA OR VOMITING; Start at 11:45 Naloxone HCl (Narcan Inj) 0.4 mg UNSCH PRN IV SEE LABEL COMMENTS; Start at 11:45 Senna/Docusate Sodium (Sivan-Colace) 1 tab BID PO ; Start 05/23/17 at 21:00 Magnesium Hydroxide (Milk Of Magnesia Liq) 30 ml Q12H PRN PO MILD - MODERATE CONSTIPATION; Start 05/23/17 at 11:45 Sennosides (Senokot) 17.2 mg Q12H PRN PO MODERATE - SEVERE CONSTIPATION; Start 05/23/17 at 11:45 Bisacodyl (Dulcolax Supp) 10 mg DAILY PRN RECTAL SEVERE CONSITIPATION; Start at 11:45 Lactulose (Lactulose Liq) 30 ml DAILY PRN PO SEVERE CONSITIPATION; Start at 11:45 Timolol Maleate (Timoptic 0.5% Opth Soln) 1 drop BID LEFT EYE Last administered on 05/25/17 08:46; Start 05/23/17 at 21:00 Enalaprilat (Vasotec Inj) 1.25 mg Q6H PRN IV PUSH SBP> OR = 180, DBP> OR = 100 ; Start 05/23/17 at 11:45 Bupivacaine HCl/ Epinephrine Bitart (Sensorcaine-Epinephrine 0.25% Inj) 50 ml STK-MED ONCE .ROUTE ; Start 05/23/17 at 17:41; Stop 05/23/17 at 17:42; Status DC Piperacillin Sod/ Tazobactam Sod 50 ml @ 100 mls/hr Q6H IV Last administered on 05/25/17 08:43; Start 05/23/17 at 20:00 Sugammadex Sodium (Bridion Inj) 800 mg STK-MED ONCE IV PUSH ; Start 05/23/17 at 18:16; Stop 05/23/17 at 18:17; Status DC Fentanyl Citrate (fentaNYL INJ) 250 mcg STK-MED ONCE .ROUTE ; Start 05/23/17 at 20:05; Stop 05/23/17 at 20:06; Status DC Miscellaneous Information ALL NURSING DEPARTME... UNSCH PRN .XX SEE LABEL COMMENTS; Start 05/23/17 at 20:30; Stop 05/24/17 at 14:36; Status DC Morphine Sulfate (Morphine Inj) 2 mg Q3H PRN IV PUSH Pain 5 - 10 Last administered on 05/24/17 08:00; Start 05/24/17 at 02:45 Ketamine HCl (Ketalar Inj) 500 mg STK-MED ONCE .ROUTE ; Start 05/24/17 at 09:36 ; Stop 05/24/17 at 09:37; Status DC Sugammadex Sodium (Bridion Inj) 400 mg STK-MED ONCE IV PUSH ; Start 05/24/17 at 09:36; Stop 05/24/17 at 09:37; Status DC Dexmedetomidine HCl (Precedex Inj) 200 mcg STK-MED ONCE .ROUTE ; Start 05/24/17 at 09:36; Stop 05/24/17 at 09:37; Status DC Bupivacaine HCl/ Epinephrine Bitart (Sensorcaine-Epinephrine 0.25% Inj) 50 ml STK-MED ONCE .ROUTE Last administered on 05/24/17 11:29; Start 05/24/17 at 09: 43; Stop 05/24/17 at 09:44; Status DC Dextrose/Lactated Ringer's 1,000 ml @ 125 mls/hr Q8H IV Last administered on 08:43; Start 05/24/17 at 13:00 Fentanyl Citrate (fentaNYL INJ) 200 mcg STK-MED ONCE .ROUTE ; Start 05/24/17 at 13:28; Stop 05/24/17 at 13:29; Status DC Miscellaneous Information ALL NURSING DEPARTME... UNSCH PRN .XX SEE LABEL COMMENTS; Start 05/24/17 at 12:25; Stop 05/25/17 at 12:24 A/P Assessment and Plan //Small bowel volvulus/coagulation as seen on CT. -Status post diagnostic laparoscopy and laparoscopic lysis of adhesions findings include single adhesive band of omental tissue. -Patient currently on Zosyn. -He is nothing by mouth and NG tube in place. Management per surgeon. //Hypertension. //Coronary artery disease -Aspirin and Plavix held secondary surgery. Pending restarting medication per general surgeon. //Hyperlipidemia/glaucoma/OA. -Once patient is alert will restart his home medication. //Prophylaxis. SCDs. antiCoagulation as per surgical service. Shahnaz Barkley MD May 25, 2017 12:07
--- NOTE | 2017-05-25 18:05 | HHI.PR ---
Subjective Subjective Notes Feeling better Objective Vitals/I&O Vital Signs Date Time Temp Pulse Resp B/P (MAP) Pulse Ox O2 Delivery O2 Flow Rate FiO2 05/25/17 16:00 97.5 72 19 143/67 (92) 95 05/25/17 09:50 Nasal Cannula 2.00 Labs Laboratory Tests Test 05/25/17 05:40 White Blood Count 10.3 Red Blood Count 3.94 Hemoglobin 12.4 Hematocrit 37.0 Mean Corpuscular Volume 94.1 Mean Corpuscular Hemoglobin 31.4 Mean Corpuscular Hemoglobin Concent 33.4 Red Cell Distribution Width 14.6 Platelet Count 150 Mean Platelet Volume 7.8 Blood Urea Nitrogen 11 Creatinine 0.60 Random Glucose 166 Calcium Level 8.0 Sodium Level 140 Potassium Level 4.0 Chloride Level 103 Carbon Dioxide Level 31.5 Anion Gap 6 Estimat Glomerular Filtration Rate 131 Abdomen: Other (distended still, but soft) Narrative Exam ELVIN output still bloody A/P Assessment and Plan POD #1 lap lysis adhesions Start GI prophylaxis Hold DVT prophylaxis due to bloody ELVIN output Remove abbey and [place] in AM Ruel Gandhi MD May 25, 2017 18:05
[2017-05-25] MEDS: PANTOPRAZOLE SODIUM 40 MG VIAL IV PUSH SCH (20:56)
[2017-05-25] MEDS: DOCUSATE SODIUM 50 MG/SENNA 8.6 MG TAB PO SCH ×2 (20:56→20:57)
[2017-05-25] MEDS ORDERED: PHENOL 1.4% SOLN 180 ML BTL OROPHARYNG PRN (21:45)
[2017-05-26] VITALS: BP 139/66; PULSE 63; RESP 18; TEMP 96.9; O2SAT 98
[2017-05-26] MEDS: PIPERACIL-TAZO 3.375 GM PREMIX 50 ML IV SCH ×4 (01:44→21:55)
[2017-05-26] MEDS: DEXTROSE 5%-LACTATED RING INJ 1,000 ML IV SCH ×3 (01:44→12:04)
[2017-05-26 08:00] VITALS: BP 147/75; PULSE 64; RESP 18; TEMP 96.3; O2SAT 97
[2017-05-26] MEDS: TIMOLOL MALEATE 0.5% OPHT SOLN 5 ML BTL LEFT EYE SCH ×2 (08:25→21:56)
[2017-05-26] MEDS: SODIUM CHLORIDE 0.9% FLUSH 10 ML FLUSH IV FLUSH SCH ×2 (08:26→21:56)
[2017-05-26] MEDS: DOCUSATE SODIUM 50 MG/SENNA 8.6 MG TAB PO SCH ×2 (08:28→21:55)
[2017-05-26] MEDS: TAMSULOSIN HCL 0.4 MG CAP PO SCH (08:28)
[2017-05-26] MEDS: SODIUM CHLOR 0.9% 1000 ML INJ 1,000 ML IV SCH (08:34)
[2017-05-26] MEDS ORDERED: LUTEIN 10 MG PO SCH (11:45)
--- NOTE | 2017-05-26 11:45 | HHI.PR ---
Subjective Remarks Follow for small bowel obstruction Patient has no complaints. Denied any nausea vomiting or abdominal pain. His Reyes was removed this morning. NG tube was clamped at the moment. Patient remains afebrile. Dealt with patient's nurse. Objective Vitals Vital Signs Date Time Temp Pulse Resp B/P (MAP) Pulse Ox O2 Delivery O2 Flow Rate FiO2 05/26/17 08:00 96.3 64 18 147/75 (99) 97 05/26/17 00:00 96.9 63 18 139/66 (90) 98 05/25/17 21:42 99 Nasal Cannula 2.00 05/25/17 20:00 96.2 73 18 138/64 (88) 96 05/25/17 20:00 Nasal Cannula 2.00 05/25/17 16:00 97.5 72 19 143/67 (92) 95 05/25/17 12:00 97.6 68 19 140/66 (90) 97 I/O 05/25/17 05/25/17 05/25/17 05/26/17 05/26/17 05/26/17 06:59 14:59 22:59 06:59 14:59 22:59 Intake Total 1014 ml 1036 ml 604 ml 1183 ml Output Total 1070 ml 350 ml 1130 ml 760 ml Balance -56 ml 686 ml -526 ml 423 ml Intake Oral 120 ml IV Total 1014 ml 1036 ml 484 ml 1183 ml Output Urine Total 450 ml 1000 ml 650 ml Gastric Drainage Total 350 ml 200 ml 100 ml 100 ml Drainage Total 270 ml 150 ml 30 ml 10 ml # Voids 2 # Bowel Movements 0 Result Diagram: 05/25/17 0540 05/25/17 0540 Objective Remarks GENERAL: in NAD sitting in clear CARDIOVASCULAR: Regular rate and rhythm without murmurs, gallops, or rubs. RESPIRATORY: Breath sounds equal bilaterally. No accessory muscle use. GASTROINTESTINAL: Abdomen soft, non-tender, nondistended.BM. Hypoactive Surgical scar dry clean and intact ELVIN drain in place with serosanguineous fluid. NG clamped. Medications and IVs Current Medications Morphine Sulfate (Morphine Inj) 2 mg ONCE ONCE IV PUSH Last administered on t 10:03; Start 05/23/17 at 09:45; Stop 05/23/17 at 09:46; Status DC Ondansetron HCl (Zofran Inj) 4 mg ONCE ONCE IVP Last administered on 10:02; Start 05/23/17 at 09:45; Stop 05/23/17 at 09:46; Status DC Sodium Chloride (NS Flush) 2 ml UNSCH PRN IV FLUSH FLUSH AFTER USING IV ACCESS ; Start 05/23/17 at 09:45; Stop 05/23/17 at 12:02; Status DC Sodium Chloride 1,000 ml @ 1,000 mls/hr Q1H IV Last administered on 05/23/17 12:43; Start 05/23/17 at 11:00; Stop 05/23/17 at 22:31; Status DC Iohexol (Omnipaque 350 Inj) 95 ml STK-MED ONCE IVCONTRAST Last administered on 05/23/17 10:52; Start 05/23/17 at 10:52; Stop 05/23/17 at 10:53; Status DC Piperacillin Sod/ Tazobactam Sod 50 ml @ 100 mls/hr ONCE ONCE IV Last administered on 05/23/17 12:43; Start 05/23/17 at 11:15; Stop 05/23/17 at 11:44 ; Status DC Sodium Chloride 1,000 ml @ 100 mls/hr Q10H IV Last administered on 05/24/17 08:00; Start 05/23/17 at 11:31 Sodium Chloride (NS Flush) 2 ml UNSCH PRN IV FLUSH FLUSH AFTER USING IV ACCESS ; Start 05/23/17 at 11:45 Sodium Chloride (NS Flush) 2 ml BID IV FLUSH Last administered on 05/23/17 22: 06; Start 05/23/17 at 21:00 Ondansetron HCl (Zofran Inj) 4 mg Q6H PRN IVP NAUSEA OR VOMITING; Start at 11:45 Naloxone HCl (Narcan Inj) 0.4 mg UNSCH PRN IV SEE LABEL COMMENTS; Start at 11:45 Senna/Docusate Sodium (Sivan-Colace) 1 tab BID PO ; Start 05/23/17 at 21:00 Magnesium Hydroxide (Milk Of Magnesia Liq) 30 ml Q12H PRN PO MILD - MODERATE CONSTIPATION; Start 05/23/17 at 11:45 Sennosides (Senokot) 17.2 mg Q12H PRN PO MODERATE - SEVERE CONSTIPATION; Start 05/23/17 at 11:45 Bisacodyl (Dulcolax Supp) 10 mg DAILY PRN RECTAL SEVERE CONSITIPATION; Start at 11:45 Lactulose (Lactulose Liq) 30 ml DAILY PRN PO SEVERE CONSITIPATION; Start at 11:45 Timolol Maleate (Timoptic 0.5% Opth Soln) 1 drop BID LEFT EYE Last administered on 05/26/17 08:25; Start 05/23/17 at 21:00 Enalaprilat (Vasotec Inj) 1.25 mg Q6H PRN IV PUSH SBP> OR = 180, DBP> OR = 100 ; Start 05/23/17 at 11:45 Bupivacaine HCl/ Epinephrine Bitart (Sensorcaine-Epinephrine 0.25% Inj) 50 ml STK-MED ONCE .ROUTE ; Start 05/23/17 at 17:41; Stop 05/23/17 at 17:42; Status DC Piperacillin Sod/ Tazobactam Sod 50 ml @ 100 mls/hr Q6H IV Last administered on 05/26/17 08:25; Start 05/23/17 at 20:00 Sugammadex Sodium (Bridion Inj) 800 mg STK-MED ONCE IV PUSH ; Start 05/23/17 at 18:16; Stop 05/23/17 at 18:17; Status DC Fentanyl Citrate (fentaNYL INJ) 250 mcg STK-MED ONCE .ROUTE ; Start 05/23/17 at 20:05; Stop 05/23/17 at 20:06; Status DC Miscellaneous Information ALL NURSING DEPARTME... UNSCH PRN .XX SEE LABEL COMMENTS; Start 05/23/17 at 20:30; Stop 05/24/17 at 14:36; Status DC Morphine Sulfate (Morphine Inj) 2 mg Q3H PRN IV PUSH Pain 5 - 10 Last administered on 05/24/17 08:00; Start 05/24/17 at 02:45 Ketamine HCl (Ketalar Inj) 500 mg STK-MED ONCE .ROUTE ; Start 05/24/17 at 09:36 ; Stop 05/24/17 at 09:37; Status DC Sugammadex Sodium (Bridion Inj) 400 mg STK-MED ONCE IV PUSH ; Start 05/24/17 at 09:36; Stop 05/24/17 at 09:37; Status DC Dexmedetomidine HCl (Precedex Inj) 200 mcg STK-MED ONCE .ROUTE ; Start 05/24/17 at 09:36; Stop 05/24/17 at 09:37; Status DC Bupivacaine HCl/ Epinephrine Bitart (Sensorcaine-Epinephrine 0.25% Inj) 50 ml STK-MED ONCE .ROUTE Last administered on 05/24/17 11:29; Start 05/24/17 at 09: 43; Stop 05/24/17 at 09:44; Status DC Dextrose/Lactated Ringer's 1,000 ml @ 125 mls/hr Q8H IV Last administered on 05:00; Start 05/24/17 at 13:00 Fentanyl Citrate (fentaNYL INJ) 200 mcg STK-MED ONCE .ROUTE ; Start 05/24/17 at 13:28; Stop 05/24/17 at 13:29; Status DC Miscellaneous Information ALL NURSING DEPARTME... UNSCH PRN .XX SEE LABEL COMMENTS; Start 05/24/17 at 12:25; Stop 05/25/17 at 12:24; Status DC Pantoprazole Sodium (Protonix Inj) 40 mg Q24H IV PUSH Last administered on 05/25 20:56; Start 05/25/17 at 20:00 Tamsulosin HCl (Flomax) 0.4 mg DAILY PO Last administered on 05/26/17 08:28; Start 05/26/17 at 09:00 Phenol (Chloraseptic [place]) 2 spray UNSCH PRN OROPHARYNG SORE THROAT Last administered on 05/25/17 23:00; Start 05/25/17 at 21:45 A/P Assessment and Plan //Small bowel volvulus/coagulation as seen on CT. -Status post diagnostic laparoscopy and laparoscopic lysis of adhesions findings include single adhesive band of omental tissue on 05/[address] Gandhi. -Patient currently on Zosyn. -Management per surgeon. NG is clamped. Patient currently nothing by mouth. //Hypertension. //Coronary artery disease -Aspirin and Plavix held secondary surgery. Pending restarting medication per general surgeon. //Hyperlipidemia/glaucoma/OA. -Restart home medication. //Prophylaxis. SCDs. anticoagulation as per surgical service. Shahnaz Barkley MD May 26, 2017 11:45
[2017-05-26 12:00] VITALS: BP 151/68; PULSE 71; RESP 17; TEMP 95.7; O2SAT 92
[2017-05-26] MEDS: amLODIPine BESYLATE 5 MG TAB PO SCH (13:30)
[2017-05-26 16:00] VITALS: BP 125/59; PULSE 72; RESP 18; TEMP 96.3; O2SAT 95
--- NOTE | 2017-05-26 17:43 | HHI.PR ---
Subjective Subjective Notes Feels extremely well; minimal residual with NG clamped Objective Vitals/I&O Vital Signs Date Time Temp Pulse Resp B/P (MAP) Pulse Ox O2 Delivery O2 Flow Rate FiO2 05/26/17 16:00 96.3 72 18 125/59 (81) 95 05/25/17 21:42 Nasal Cannula 2.00 Lungs: Clear Abdomen: Other (Moderately distended) Narrative Exam ELVIN output still bloody, but decreasing Voided without difficulty since potter removed A/P Assessment and Plan POD #2 lap lysis adhesions Hold DVT prophylaxis due to bloody ELVIN output Potter and NG removed Ruel Monique MD May 26, 2017 17:43
[2017-05-26 20:00] VITALS: BP 131/65; PULSE 69; RESP 18; TEMP 96.8; O2SAT 94
[2017-05-26] MEDS ORDERED: ATORVASTATIN 10 MG TAB PO SCH (21:00)
[2017-05-26] MEDS: PANTOPRAZOLE SODIUM 40 MG VIAL IV PUSH SCH (21:55)
[2017-05-27] VITALS: BP 133/61; PULSE 67; RESP 18; TEMP 96.1; O2SAT 92
[2017-05-27] MEDS: PIPERACIL-TAZO 3.375 GM PREMIX 50 ML IV SCH ×2 (01:47→09:35)
[2017-05-27 06:04] VITALS: O2SAT 92
[2017-05-27 08:00] VITALS: BP 146/67; PULSE 75; RESP 17; TEMP 96.2; O2SAT 92
[2017-05-27 08:45] VITALS: BP 141/64; PULSE 64; RESP 18; TEMP 96.3; O2SAT 95
[2017-05-27] MEDS: SODIUM CHLORIDE 0.9% FLUSH 10 ML FLUSH IV FLUSH SCH (09:21)
[2017-05-27] MEDS: TAMSULOSIN HCL 0.4 MG CAP PO SCH (09:26)
[2017-05-27] MEDS: amLODIPine BESYLATE 5 MG TAB PO SCH (09:27)
[2017-05-27] MEDS: DOCUSATE SODIUM 50 MG/SENNA 8.6 MG TAB PO SCH (09:28)
[2017-05-27 09:30] LABS: HEMATOCRIT 35.9 % (39.0-51.0); MEAN CORPUSCULAR HEMOGLOBIN 32.6 PG (27.0-34.0); MEAN CORPUSCULAR HGB CONC 34.3 % (32.0-36.0); PLATELET COUNT 167 TH/MM3 (150-450); RED BLOOD COUNT 3.78 MIL/MM3 (4.50-5.90); RED CELL DISTRIBUTION WIDTH 14.8 % (11.6-17.2); REVIEW FLAG FINAL; WHITE BLOOD COUNT 6.6 TH/MM3 (4.0-11.0)
[2017-05-27] MEDS: TIMOLOL MALEATE 0.5% OPHT SOLN 5 ML BTL LEFT EYE SCH (09:30)
[2017-05-27 09:55] LABS: BICARBONATE 28.6 MEQ/L (21.0-32.0); POTASSIUM 3.7 MEQ/L (3.5-5.1)
--- NOTE | 2017-05-27 11:17 | HHI.PR ---
Subjective Subjective Notes Resting in bed [facility] Student Nurse Ty at bedside Objective Vitals/I&O Vital Signs Date Time Temp Pulse Resp B/P (MAP) Pulse Ox O2 Delivery O2 Flow Rate FiO2 05/27/17 08:45 96.3 64 18 141/64 (89) 95 05/26/17 21:00 Room Air 05/25/17 21:42 2.00 Labs Laboratory Tests Test 05/27/17 08:47 White Blood Count 6.6 Red Blood Count 3.78 Hemoglobin 12.3 Hematocrit 35.9 Mean Corpuscular Volume 95.0 Mean Corpuscular Hemoglobin 32.6 Mean Corpuscular Hemoglobin Concent 34.3 Red Cell Distribution Width 14.8 Platelet Count 167 Mean Platelet Volume 7.6 Blood Urea Nitrogen 9 Creatinine 0.54 Random Glucose 87 Calcium Level 8.5 Sodium Level 141 Potassium Level 3.7 Chloride Level 104 Carbon Dioxide Level 28.6 Anion Gap 8 Estimat Glomerular Filtration Rate 148 Cardiovascular: Regular Lungs: Clear Abdomen: Other (minimally distended; lap sites with minimal bloody drainage; abd soft; ELVIN with minimal bloody drainage in place ) Extremities: No edema A/P Assessment and Plan 77 year old male POD3 dx lap; lap HEYDI -Reyes out; NGT out -Advance to soft diet -Pain control -DC ELVIN drain -OOB and mobilize -Tentative DC later today vs tomorrow Attending Note - Dr. Gandhi Abdomen benign; ambulating in hallway ELVIN output decreased, but still bloody The exam, history, and the medical decision-making described in the above note were completed with the assistance of the mid-level provider. I reviewed and agree with the findings presented. I attest that I had a [id number] encounter with the patient on the same day, and personally performed and documented my assessment and findings in the medical record. Emma Thompson May 27, 2017 11:17 Ruel Gandhi MD May 31, 2017 17:32
--- NOTE | 2017-05-27 11:38 | HHI.PR ---
Subjective Remarks Follow-up for small bowel obstruction Patient stated that he tolerated a clear liquid diet. He stated that he is passing flatus but no bowel movement yet. Denies any tunnel pain. Patient is not taking any pain medication. Remains afebrile. He stated that he ambulated twice yesterday. [facility] [place] professional nursing tutor at the bedside. Objective Vitals Vital Signs Date Time Temp Pulse Resp B/P (MAP) Pulse Ox O2 Delivery O2 Flow Rate FiO2 05/27/17 08:45 96.3 64 18 141/64 (89) 95 05/27/17 06:04 92 05/27/17 00:00 96.1 67 18 133/61 (85) 92 05/26/17 21:00 Room Air 05/26/17 20:00 96.8 69 18 131/65 (87) 94 05/26/17 16:00 96.3 72 18 125/59 (81) 95 05/26/17 12:00 95.7 71 17 151/68 (95) 92 I/O 05/26/17 05/26/17 05/26/17 05/27/17 05/27/17 05/27/17 06:59 14:59 22:59 06:59 14:59 22:59 Intake Total 1183 ml 800 ml 1664 ml 100 ml Output Total 760 ml 50 ml 300 ml 60 ml Balance 423 ml 750 ml 1364 ml 40 ml Intake Oral 0 ml IV Total 1183 ml 800 ml 1664 ml 100 ml Output Urine Total 650 ml 300 ml Gastric Drainage Total 100 ml Drainage Total 10 ml 50 ml 60 ml # Bowel Movements 0 Result Diagram: 05/27/17 0847 05/27/17 0847 Objective Remarks GENERAL: in NAD CARDIOVASCULAR: Regular rate and rhythm without murmurs, gallops, or rubs. RESPIRATORY: Breath sounds equal bilaterally. No accessory muscle use. GASTROINTESTINAL: Abdomen soft, non-tender, nondistended.BM. normoactive BM. Surgical scar dry clean and intact ELVIN drain in place with serosanguineous fluid. d. Medications and IVs Current Medications Morphine Sulfate (Morphine Inj) 2 mg ONCE ONCE IV PUSH Last administered on t 10:03; Start 05/23/17 at 09:45; Stop 05/23/17 at 09:46; Status DC Ondansetron HCl (Zofran Inj) 4 mg ONCE ONCE IVP Last administered on 10:02; Start 05/23/17 at 09:45; Stop 05/23/17 at 09:46; Status DC Sodium Chloride (NS Flush) 2 ml UNSCH PRN IV FLUSH FLUSH AFTER USING IV ACCESS ; Start 05/23/17 at 09:45; Stop 05/23/17 at 12:02; Status DC Sodium Chloride 1,000 ml @ 1,000 mls/hr Q1H IV Last administered on 05/23/17 12:43; Start 05/23/17 at 11:00; Stop 05/23/17 at 22:31; Status DC Iohexol (Omnipaque 350 Inj) 95 ml STK-MED ONCE IVCONTRAST Last administered on 05/23/17 10:52; Start 05/23/17 at 10:52; Stop 05/23/17 at 10:53; Status DC Piperacillin Sod/ Tazobactam Sod 50 ml @ 100 mls/hr ONCE ONCE IV Last administered on 05/23/17 12:43; Start 05/23/17 at 11:15; Stop 05/23/17 at 11:44 ; Status DC Sodium Chloride 1,000 ml @ 100 mls/hr Q10H IV Last administered on 05/24/17 08:00; Start 05/23/17 at 11:31 Sodium Chloride (NS Flush) 2 ml UNSCH PRN IV FLUSH FLUSH AFTER USING IV ACCESS ; Start 05/23/17 at 11:45 Sodium Chloride (NS Flush) 2 ml BID IV FLUSH Last administered on 05/27/17 09: 21; Start 05/23/17 at 21:00 Ondansetron HCl (Zofran Inj) 4 mg Q6H PRN IVP NAUSEA OR VOMITING; Start at 11:45 Naloxone HCl (Narcan Inj) 0.4 mg UNSCH PRN IV SEE LABEL COMMENTS; Start at 11:45 Senna/Docusate Sodium (Sivan-Colace) 1 tab BID PO Last administered on 09:28; Start 05/23/17 at 21:00 Magnesium Hydroxide (Milk Of Magnesia Liq) 30 ml Q12H PRN PO MILD - MODERATE CONSTIPATION; Start 05/23/17 at 11:45 Sennosides (Senokot) 17.2 mg Q12H PRN PO MODERATE - SEVERE CONSTIPATION; Start 05/23/17 at 11:45 Bisacodyl (Dulcolax Supp) 10 mg DAILY PRN RECTAL SEVERE CONSITIPATION; Start at 11:45 Lactulose (Lactulose Liq) 30 ml DAILY PRN PO SEVERE CONSITIPATION; Start at 11:45 Timolol Maleate (Timoptic 0.5% Opth Soln) 1 drop BID LEFT EYE Last administered on 05/27/17 09:30; Start 05/23/17 at 21:00 Enalaprilat (Vasotec Inj) 1.25 mg Q6H PRN IV PUSH SBP> OR = 180, DBP> OR = 100 ; Start 05/23/17 at 11:45 Bupivacaine HCl/ Epinephrine Bitart (Sensorcaine-Epinephrine 0.25% Inj) 50 ml STK-MED ONCE .ROUTE ; Start 05/23/17 at 17:41; Stop 05/23/17 at 17:42; Status DC Piperacillin Sod/ Tazobactam Sod 50 ml @ 100 mls/hr Q6H IV Last administered on 05/27/17 09:35; Start 05/23/17 at 20:00 Sugammadex Sodium (Bridion Inj) 800 mg STK-MED ONCE IV PUSH ; Start 05/23/17 at 18:16; Stop 05/23/17 at 18:17; Status DC Fentanyl Citrate (fentaNYL INJ) 250 mcg STK-MED ONCE .ROUTE ; Start 05/23/17 at 20:05; Stop 05/23/17 at 20:06; Status DC Miscellaneous Information ALL NURSING DEPARTME... UNSCH PRN .XX SEE LABEL COMMENTS; Start 05/23/17 at 20:30; Stop 05/24/17 at 14:36; Status DC Morphine Sulfate (Morphine Inj) 2 mg Q3H PRN IV PUSH Pain 5 - 10 Last administered on 05/24/17 08:00; Start 05/24/17 at 02:45 Ketamine HCl (Ketalar Inj) 500 mg STK-MED ONCE .ROUTE ; Start 05/24/17 at 09:36 ; Stop 05/24/17 at 09:37; Status DC Sugammadex Sodium (Bridion Inj) 400 mg STK-MED ONCE IV PUSH ; Start 05/24/17 at 09:36; Stop 05/24/17 at 09:37; Status DC Dexmedetomidine HCl (Precedex Inj) 200 mcg STK-MED ONCE .ROUTE ; Start 05/24/17 at 09:36; Stop 05/24/17 at 09:37; Status DC Bupivacaine HCl/ Epinephrine Bitart (Sensorcaine-Epinephrine 0.25% Inj) 50 ml STK-MED ONCE .ROUTE Last administered on 05/24/17 11:29; Start 05/24/17 at 09: 43; Stop 05/24/17 at 09:44; Status DC Dextrose/Lactated Ringer's 1,000 ml @ 125 mls/hr Q8H IV Last administered on 12:04; Start 05/24/17 at 13:00 Fentanyl Citrate (fentaNYL INJ) 200 mcg STK-MED ONCE .ROUTE ; Start 05/24/17 at 13:28; Stop 05/24/17 at 13:29; Status DC Miscellaneous Information ALL NURSING DEPARTME... UNSCH PRN .XX SEE LABEL COMMENTS; Start 05/24/17 at 12:25; Stop 05/25/17 at 12:24; Status DC Pantoprazole Sodium (Protonix Inj) 40 mg Q24H IV PUSH Last administered on 05/26 21:55; Start 05/25/17 at 20:00 Tamsulosin HCl (Flomax) 0.4 mg DAILY PO Last administered on 05/27/17 09:26; Start 05/26/17 at 09:00 Phenol (Chloraseptic [place]) 2 spray UNSCH PRN OROPHARYNG SORE THROAT Last administered on 05/25/17 23:00; Start 05/25/17 at 21:45 Amlodipine Besylate (Norvasc) 5 mg DAILY PO Last administered on 05/27/17 09: 27; Start 05/26/17 at 11:45 Atorvastatin Calcium (Lipitor) 10 mg HS PO Last administered on 05/26/17 21:55 ; Start 05/26/17 at 21:00 Non-Formulary Medication 10 mg DAILY PO ; Start 05/26/17 at 11:45; Stop at 14:58; Status DC A/P Assessment and Plan //Small bowel volvulus/coagulation as seen on CT. -Status post diagnostic laparoscopy and laparoscopic lysis of adhesions findings include single adhesive band of omental tissue on 05/[address] Gandhi. -Will DC Zosyn since patient does not have any infection. -Per general surgeon will advance diet, out of bed, possible discharge today or tomorrow if patient does well. //Hypertension. //Coronary artery disease -Aspirin and Plavix held due to surgery. Most likely can restart medication. //Hyperlipidemia/glaucoma/OA. -Continue home medication. //Prophylaxis. SCDs. anticoagulation as per surgical service. Shahnaz Barkley MD May 27, 2017 11:38
[2017-05-27] MEDS: DEXTROSE 5%-LACTATED RING INJ 1,000 ML IV SCH (12:29)
--- NOTE | 2017-05-27 13:14 | HHI.DCPOC ---
Discharge Care Plan Diagnosis: (1) SBO (small bowel obstruction) Goals to Promote Your Health * To prevent worsening of your condition and complications * To maintain your health at the optimal level Directions to Meet Your Goals Take your medications as prescribed Follow your dietary instruction Follow activity as directed Keep your appointments as scheduled Take your immunizations and boosters as scheduled If your symptoms worsen call your PCP, if no PCP go to Urgent Care Center or Emergency Room Smoking is Dangerous to Your Health. Avoid second hand smoke Call the 24-hour hour crisis hotline for domestic abuse at Shahnaz Barkley MD May 27, 2017 13:14
[2017-05-27 13:15] VITALS: BP 135/75; PULSE 81; RESP 16; TEMP 97.2; O2SAT 96
--- NOTE | 2017-05-27 15:27 | HHI.DS ---
Discharge Summary Admission Date May 23, 2017 at 11:33 Discharge Date: May 27, 2017 Admitting Diagnosis SBO (1) SBO (small bowel obstruction) ICD Code: K56.69 - Other intestinal obstruction Status: Acute Procedures See hospital course. Brief History - From Admission 77-year-old male with a history of coronary artery disease, carotid stenosis status post endarterectomy, cervical spinal fusion, presents with acute onset nonradiating, crampy lower abdominal pain that began around 4:30 AM, waking him from sleep. He tried Zantac and Gas-X, however vomited this. No blood in vomit. Upon admission to the ER, nausea and abdominal pain improved with antiemetics and narcotics. Patient reports previously feeling all right. Denies any fevers, chills, chest pain, shortness of breath. CBC/BMP: 05/27/17 0847 05/27/17 0847 Significant Findings Laboratory Tests Test 05/25/17 05:40 05/27/17 08:47 Red Blood Count 3.94 MIL/MM3 (4.50-5.90) 3.78 MIL/MM3 (4.50-5.90) Hemoglobin 12.4 GM/DL (13.0-17.0) 12.3 GM/DL (13.0-17.0) Hematocrit 37.0 % (39.0-51.0) 35.9 % (39.0-51.0) Random Glucose 166 MG/DL (74-106) Calcium Level 8.0 MG/DL (8.5-10.1) Creatinine 0.54 MG/DL (0.60-1.30) Imaging Last Impressions Abdomen X-Ray 05/23/17 1216 Signed Impressions: Service Date/Time: Tuesday, May 23, 2017 12:28 - CONCLUSION: The tip of the NG tube is at the GE junction. Recommend advancing NG tube approximately 10 cm. Dereck Paniagua MD Abdomen/Pelvis CT 05/23/17 0943 Signed Impressions: Service Date/Time: Tuesday, May 23, 2017 10:48 - CONCLUSION: Significantly abnormal appearance of the small bowel within the left lower quadrant with abnormal dilation and adjacent free fluid concerning for a focal area of small bowel volvulus and strangulation. These findings were discussed with the referring physician at 1107 on May 23, 2017. Hali Danielson MD PE at Discharge GENERAL: in NAD CARDIOVASCULAR: Regular rate and rhythm without murmurs, gallops, or rubs. RESPIRATORY: Breath sounds equal bilaterally. No accessory muscle use. GASTROINTESTINAL: Abdomen soft, non-tender, nondistended.BM. normoactive BM. Surgical scar dry clean. Pt update on day of discharge Please see progress note from day of discharge for further information. Dealt with TK Zamora from surgery who stated that patient be discharge if he tolerates his dinner. She also stated that can restart aspirin and Plavix on Wednesday. Hospital Course //Small bowel volvulus/coagulation as seen on CT. -Patient was given supportive care with IV fluids and NG tube placement. General surgery consulted and he had a diagnostic laparoscopy and laparoscopic lysis of adhesions findings include single adhesive band of omental tissue on by Dr. Gandhi. -He was empirically put on Zosyn but there were no signs of infection. Infectious workup was negative. -On the day of discharge patient was tolerating diet and did well. //Hypertension. //Coronary artery disease -Aspirin and Plavix held due to surgery. Per surgeon can restart aspirin and Plavix on Wednesday. //Hyperlipidemia/glaucoma/OA. -Continue home medication. Pt Condition on Discharge: Good Discharge Disposition: Discharge Home Discharge Time: > 30 minutes Discharge Instructions DIET: Follow Instructions for: Heart Healthy Diet Activities you can perform: See Additionl Instruction Other Activity Instructions: No lifting greater than 5 lbs and until cleared by Surgeon. Follow up Referrals: PCP Follow-up - 1 Week Surgical - 10 Days with Ruel Gandhi MD Continued Medications: Amlodipine (Amlodipine) 5 Mg Tab 5 MG PO DAILY for Blood Pressure Management, #30 TAB 0 Refills Aspirin (Aspirin) 81 Mg Chew 81 MG CHEW DAILY, TAB 0 Refills Restart aspirin on Wednesday. Atorvastatin (Lipitor) 10 Mg Tab 10 MG PO HS for Cholesterol Management, #30 TAB 0 Refills Clopidogrel (Plavix) 75 Mg Tab 75 MG PO DAILY for Blood Clot Prevention, #30 TAB 0 Refills Restart Plavix on Wednesday. Etanercept PF Inj (Enbrel PF Inj) 50 mg/ml Syr 25 MG SQ 2XWEEK, #4 SYRINGE 0 Refills Folic Acid (Folic Acid) 400 Mcg Tab Unknown Dose PO DAILY for Nutritional Supplement, TAB 0 Refills Lisinopril-Hctz (Lisinopril-Hctz) 20-25 Mg Tab 1 TAB PO DAILY for Blood Pressure Management, #30 TAB 0 Refills Lutein (Lutein) 10 Mg Tab 10 MG PO DAILY for Nutritional Supplement, TAB 0 Refills Methotrexate (Methotrexate) 2.5 Mg Tab 10 MG PO Q7D, TAB 0 Refills Multiple Vitamin (Multiple Vitamin) 1 Tab 1 TAB PO DAILY for Nutritional Supplement, TAB 0 Refills Timolol Opth Drops (Timolol Opth Drops) 0.5 % Soln 1 DROP LEFT EYE BID for Glaucoma, #1 BOTTLE 0 Refills Shahnaz Bakrley MD May 27, 2017 15:26
--- NOTE | 2017-06-01 09:01 | MP ---
cc: NICOLA KOWALSKI M.D. DATE OF SURGERY 05/24/2017 PROCEDURE Diagnostic laparoscopy with laparoscopic lysis of adhesion. PREOPERATIVE DIAGNOSIS Small bowel obstruction. POSTOPERATIVE DIAGNOSIS Small bowel obstruction same secondary to internal hernia with omental adhesions in the left lower quadrant. PROCEDURE IN DETAIL The patient was taken to the operating room and placed on the operating table in the supine position. After an adequate level of general endotracheal anesthesia was achieved, the abdomen was prepped and draped in the usual fashion. Time-out was taken confirming the correct patient, site, and procedure to be performed. A small incision was made below the umbilicus and a 5-mm trocar was used under direct vision to gain access to the abdominal cavity. When this was accomplished, a 5 mm 30 degrees lens was inserted. Two additional 5-mm trocars were placed with a second above the umbilicus and a third located in the suprapubic region. Both entered the abdominal cavity under direct vision uneventfully. The patient was noted upon examination to have some bloody fluid in the pelvis. This was aspirated away. The patient was noted to have dilated loops of small bowel in the left lower quadrant. Careful examination revealed a piece of omentum creating a tether and an internal hernia. This was released with a harmonic scalpel. When this had been accomplished, the bowel was run from near the ligament of Treitz to the ileocecal valve and no further adhesions were noted. There did not appear to be a tumor or other pathology causing the tethering. The bowel involved in the adhesion was not ischemic or otherwise affected. The abdomen was irrigated and all bloody material was aspirated. A ELVIN drain was brought out via the lower 5 mm trocar site and fixed to the skin with a 3-0 nylon suture. The drain was placed in the pelvis and along the left gutter to drain fluid. At this point, insufflation was discontinued and the trocars removed. The trocar sites were closed with 4-0 Vicryl in an interrupted buried fashion and the drain was dressed with a 4x4. The patient was extubated and taken back to the recovery room in stable condition. The nasogastric tube was left in place. He tolerated the procedure well. MD MAL Patricia/SUYAPA Brar: 05/30/2017/7:59 PM /8:55 AM VANI
== END 2017-05-27 18:59 | disposition home or self-care (01) | DRG 337 ==
LOC: PHEFT 09:21 → PHEDA 11:33 → NEPGCP 14:53 → N07B 17:39 → N07A 19:28
PROVIDERS: ADMIT Hospitalist; ATTEND Hospitalist
PROC: 0T9B70Z Drainage of Bladder with Drainage Device, Via Natural or Artificial Opening (ICD-10-PCS; 2017-05-24)
PROC: 0DN84ZZ Release Small Intestine, Percutaneous Endoscopic Approach (ICD-10-PCS; principal; 2017-05-24 10:25)
DX: K46.0 Unspecified abdominal hernia with obstruction, without gangrene (principal); I10 Essential (primary) hypertension; T88.4XXA Failed or difficult intubation, initial encounter; E78.5 Hyperlipidemia, unspecified; I25.10 Atherosclerotic heart disease of native coronary artery without angina pectoris; H40.9 Unspecified glaucoma; M19.90 Unspecified osteoarthritis, unspecified site; Z98.1 Arthrodesis status; Z82.49 Family history of ischemic heart disease and other diseases of the circulatory system; Z53.09 Procedure and treatment not carried out because of other contraindication
CPT/HCPCS: 74000; 74177; 80048; 80053; 81001; 83605; 83690; 85025; 85027; 93005; 96374; 96375; C9113; J2270; J2370; J2405; J2543; J3010; J7030; J7120; J7121; Q9967

== ENCOUNTER → 2017-07-08 | Outpatient (CLI) | payer MEDICARE ==
[~2017-07-08] MED LIST changes: -AMLO2.5T PO; +AMLO5TAB2 PO; +ASPI81CH CHEW; -ATOR10 PO; +ENBR50IN2 SQ; -ENBR50IN3 SC; -FOLI1 PO; +FOLI400T PO; +LIPI10TA PO; -LISI10TA PO; +LISI20TA3 PO; +LUTE1TAB PO; -METH2.5 PO; +METH2.5T PO; +MULTTAB67 PO; -PLAV75TA PO; +PLAV75TA29 PO; -ST J81CH PO; -TAB-TAB PO; +TIMO0.5S30 LEFT EYE; -TIMO0.5S4 EACH EYE
[2017-07-08 14:01] LABS: HEMATOCRIT 38.9 % (39.0-51.0); MEAN CORPUSCULAR HEMOGLOBIN 32.2 PG (27.0-34.0); MEAN CORPUSCULAR HGB CONC 33.9 % (32.0-36.0); PLATELET COUNT 216 TH/MM3 (150-450); RED BLOOD COUNT 4.09 MIL/MM3 (4.50-5.90); RED CELL DISTRIBUTION WIDTH 14.2 % (11.6-17.2); REVIEW FLAG FINAL; WHITE BLOOD COUNT 6.2 TH/MM3 (4.0-11.0)
[2017-07-08 14:17] LABS: ANION GAP 5 MEQ/L (5-15); AST (GOT) 19 U/L (15-37); BICARBONATE 32.8 MEQ/L (21.0-32.0); BLOOD UREA NITROGEN 16 MG/DL (7-18); CHLORIDE 101 MEQ/L (98-107); GLOMERULAR FILTRATION RATE 111 ML/MIN (>89); POTASSIUM 4.5 MEQ/L (3.5-5.1); SODIUM (NA) 139 MEQ/L (136-145)
[2017-07-08 14:18] LABS: ALT (GPT) 18 U/L (12-78)
[2017-07-08 14:20] LABS: ALKALINE PHOSPHATASE 82 U/L (45-117); TOTAL BILIRUBIN ADULT 0.6 MG/DL (0.2-1.0)
[2017-07-08 14:26] LABS: WESTERGREN SEDIMENTATION RATE 23 mm/hr (0-20)
== END ==
LOC: PLAB 12:01
DX: M06.4 Inflammatory polyarthropathy (principal)
CPT/HCPCS: 36415; 80053; 85027; 85652; 86140

== ENCOUNTER → 2017-11-24 | Outpatient (CLI) | payer MEDICARE ==
[~2017-11-24] MED LIST changes: +ASPI-516 CHEW; -ASPI81CH CHEW
[2017-11-24 13:10] LABS: HEMATOCRIT 39.6 % (39.0-51.0); HEMOGLOBIN 13.3 GM/DL (13.0-17.0); MEAN CELL VOLUME 93.8 FL (80.0-100.0); MEAN CORPUSCULAR HEMOGLOBIN 31.4 PG (27.0-34.0); MEAN CORPUSCULAR HGB CONC 33.5 % (32.0-36.0); PLATELET COUNT 204 TH/MM3 (150-450); RED BLOOD COUNT 4.23 MIL/MM3 (4.50-5.90); RED CELL DISTRIBUTION WIDTH 15.1 % (11.6-17.2); WHITE BLOOD COUNT 5.8 TH/MM3 (4.0-11.0)
[2017-11-24 13:28] LABS: ALBUMIN 3.6 GM/DL (3.4-5.0); AST (GOT) 20 U/L (15-37); BICARBONATE 35.2 MEQ/L (21.0-32.0); BLOOD UREA NITROGEN 16 MG/DL (7-18); CALCIUM 9.5 MG/DL (8.5-10.1); CHLORIDE 101 MEQ/L (98-107); CREATININE 0.73 MG/DL (0.60-1.30); GLOMERULAR FILTRATION RATE 104 ML/MIN (>89); GLUCOSE,FASTING 110 MG/DL (74-99); SODIUM (NA) 139 MEQ/L (136-145)
[2017-11-24 13:29] LABS: ALT (GPT) 22 U/L (12-78)
[2017-11-24 13:32] LABS: ALKALINE PHOSPHATASE 87 U/L (45-117); TOTAL BILIRUBIN ADULT 0.5 MG/DL (0.2-1.0); TOTAL PROTEIN 7.5 GM/DL (6.4-8.2)
[2017-11-24 14:01] LABS: WESTERGREN SEDIMENTATION RATE 20 mm/hr (0-20)
== END ==
LOC: PLAB 10:50
DX: M45.9 Ankylosing spondylitis of unspecified sites in spine (principal)
CPT/HCPCS: 36415; 80053; 85027; 85652; 86140

== ENCOUNTER → 2018-02-17 | Outpatient (CLI) | payer MEDICARE ==
[2018-02-17 14:12] LABS: HEMATOCRIT 38.5 % (39.0-51.0); HEMOGLOBIN 12.9 GM/DL (13.0-17.0); MEAN CELL VOLUME 94.7 FL (80.0-100.0); MEAN CORPUSCULAR HEMOGLOBIN 31.6 PG (27.0-34.0); MEAN CORPUSCULAR HGB CONC 33.4 % (32.0-36.0); MEAN PLATELET VOLUME 8.2 FL (7.0-11.0); PLATELET COUNT 195 TH/MM3 (150-450); RED BLOOD COUNT 4.07 MIL/MM3 (4.50-5.90); RED CELL DISTRIBUTION WIDTH 14.8 % (11.6-17.2); WHITE BLOOD COUNT 5.1 TH/MM3 (4.0-11.0)
[2018-02-17 14:17] LABS: ALBUMIN 3.5 GM/DL (3.4-5.0); ALT (GPT) 22 U/L (12-78); BLOOD UREA NITROGEN 18 MG/DL (7-18); CALCIUM 9.1 MG/DL (8.5-10.1); CHLORIDE 102 MEQ/L (98-107); CREATININE 0.81 MG/DL (0.60-1.30); GLOMERULAR FILTRATION RATE 93 ML/MIN (>89); GLUCOSE,RANDOM 132 MG/DL (74-106); SODIUM (NA) 142 MEQ/L (136-145)
[2018-02-17 14:27] LABS: ALKALINE PHOSPHATASE 80 U/L (45-117); AST (GOT) 19 U/L (15-37); C-REACTIVE PROTEIN LESS THAN 0.29 MG/DL (0.00-0.30); TOTAL BILIRUBIN ADULT 0.6 MG/DL (0.2-1.0); TOTAL PROTEIN 7.4 GM/DL (6.4-8.2)
[2018-02-17 14:37] LABS: WESTERGREN SEDIMENTATION RATE 21 mm/hr (0-20)
== END ==
LOC: PLAB 11:28
DX: M45.9 Ankylosing spondylitis of unspecified sites in spine (principal)
CPT/HCPCS: 36415; 80053; 85027; 85652; 86140